=== PATIENT | female | born 1940 | race Caucasian/White ===

== ENCOUNTER → 2017-11-15 | Outpatient (CLI) | payer MEDICARE, BC ==
--- NOTE | 2017-11-15 15:10 | MM ---
Reason for exam: additional evaluation requested from prior study. Last mammogram was performed 1 year and 5 months ago. History: Patient is postmenopausal, has history of breast cancer at age 76, and history of other cancer. Family history of breast cancer in paternal cousin at age 50 and breast cancer in paternal grandmother at age 70. Malignant US breast needle core LT of the left breast, June 29, 2016. Mastectomy of the left breast, June 2016. Benign excisional biopsy of the left breast, April 21, 1999. Took estrogen for 15 years beginning at age 41. Physical Findings: Nurse did not find any significant physical abnormalities on exam. MG 3D Diag Mammo W/Cad RT CC and MLO view(s) were taken of the right breast. Prior study comparison: June 29, 2016, left breast MG diagnostic mammo LT wo CAD. June 08, 2016, left breast MG 3d work up w/cad LT. The breast tissue is heterogeneously dense. This may lower the sensitivity of mammography. Finding: There are typically benign vascular calcifications in the right breast. No suspicious abnormality. These results were verbally communicated with the patient and result sheet given to the patient on 11/15/17. ASSESSMENT: Benign, BI-RAD 2 RECOMMENDATION: Follow-up diagnostic mammogram of the right breast in 1 year.
== END ==
LOC: RADMAMWWP 13:52
PROVIDERS: ATTEND Nurse Practitioner Family
DX: R92.8 Other abnormal and inconclusive findings on diagnostic imaging of breast (principal); Z85.3 Personal history of malignant neoplasm of breast
CPT/HCPCS: 77065; G0279

== ENCOUNTER → 2019-01-13 | Outpatient (CLI) | payer MEDICARE, BC ==
--- NOTE | 2019-01-14 07:37 | MM ---
Reason for exam: additional evaluation requested from prior study. Last mammogram was performed 1 year and 2 months ago. History: Patient is postmenopausal, has history of breast cancer at age 76, and history of other cancer. Family history of breast cancer in paternal cousin at age 50 and breast cancer in paternal grandmother at age 70. Malignant US breast needle core LT of the left breast, June 29, 2016. Mastectomy of the left breast, June 2016. Benign excisional biopsy of the left breast, April 21, 1999. Took estrogen for 15 years beginning at age 41. Physical Findings: Nurse did not find any significant physical abnormalities on exam. MG 3D Diag Mammo W/Cad RT CC and MLO view(s) were taken of the right breast. Prior study comparison: November 15, 2017, right breast MG 3d diag mammo w/cad RT. June 29, 2016, left breast MG diagnostic mammo LT wo CAD. The breast tissue is heterogeneously dense. This may lower the sensitivity of mammography. Stable vascular calcifications. There is no discrete abnormality. No significant new findings when compared with previous films. These results were verbally communicated with the patient and result sheet given to the patient on 01/13/19. ASSESSMENT: Benign, BI-RAD 2 RECOMMENDATION: Routine screening mammogram of the right breast in 1 year.
--- NOTE | 2019-01-14 09:50 | BD ---
EXAMINATION TYPE: Axial Bone Density DATE OF EXAM: 01/13/2019 COMPARISON: NONE CLINICAL HISTORY: 78 YR OLD FEMALE.....ICD-10 CODE: Z78.0 POST MENOPAUSAL W/O HRT Height: 67.5 Weight: 131 FRAX RISK QUESTIONS: Family History (Parent hip fracture): YES Glucocorticoids (More than 3mos): YES (Ex: prednisone, prednisolone, methylprednisolone, dexamethasone, and hydrocortisone). RISK FACTORS HISTORY OF: Family History of Osteoporosis: YES HER MOTHER WITH HIP FX, SISTERS X3 ALL WITH HIP FXS Active: GETS AROUND Postmenopausal woman: YES, TOTAL HYST AT 45 YRS OLD, HORMONES FOR SHORT WHILE ONLY, NONE NOW Lost more than 2 inches in height since high school: YES Frequent falls: UNSTEADY, SHAKY Poor Health: FRAIL MEDICATIONS: Prednisone or other steroids: INHALER WITH STEROIDS, COPD, STEROIDS How Long: FOR MANY YRS Osteoporosis Medications: PROLIA 2X/YR ...FOR 2 YRS NOW Additional Medications: DIABETIC MEDS, BP MEDS, HEART MEDS, CALCIUM AND VIT D, 2 DIABETIC INJECTIONS DAILY ALSO Additional History: DIABETIC, OSTEOARTHRITIS, EXAM MEASUREMENTS: Bone mineral densitometry was performed using the [employer] System. Bone mineral density as measured about the Lumbar spine is: ----- L1-L4(G/cm2): 1.036 T Score Values are as follows: ----- L1: -1.4 ----- L2: -1.0 ----- L3: -1.6 ----- L4: -1.5 ----- L1-L4: -1.3 Bone mineral density FIRST DEXA AT [facility] Bone mineral density about the R hip (g/cm2): 0.758 Bone mineral density about the L hip (g/cm2): 0.809 T Score values are as follows: -----R Neck: -1.5 -----L Neck: -1.5 -----R Total: -2.0 -----L Total: -1.6 Bone mineral density FIRST DEXA AT [facility] FRAX%s: THERE IS A 31.2% CHANCE FOR A MAJOR OSTEOPOROTIC FX AND A 20.4% FOR HIP......PROBABILITY F OR FX IN 10 YRS TIME IMPRESSION: Osteopenia (T Score between -2.5 and -1). There is slightly increased risk of fracture and the patient may be considered for treatment. Re-Screen 2-5 years. NOTE: T-SCORE=SD OF THE YOUNG ADULT MEAN.
== END | disposition home or self-care (01) ==
LOC: RADMAMWWP 15:31
PROVIDERS: ATTEND Family Medicine
DX: Z13.820 Encounter for screening for osteoporosis (principal); M85.80 Other specified disorders of bone density and structure, unspecified site; Z85.3 Personal history of malignant neoplasm of breast; Z78.0 Asymptomatic menopausal state
CPT/HCPCS: 77080; 77065; G0279; 77061

== ENCOUNTER 2019-09-23 16:55 | Emergency (ER) | payer MEDICARE, BC ==
[2019-09-23 17:08] VITALS: RESP 18; TEMP 97.6
--- NOTE | 2019-09-23 18:45 | ED ---
General Adult HPI - General Chief complaint: Recheck/Abnormal Lab/Rx Stated complaint: High BP Time Seen by Provider: 09/23/19 17:08 Source: patient Mode of arrival: wheelchair Limitations: no limitations - History of Present Illness Initial comments: The patient is an 79 old female past medical history of diabetes mellitus and hypertension who presents emergency room with reported high blood pressures. She states that she has had hypertension for years. 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 She takes ramipril 40 mg at night and amlodipine 5 mg during the day. The amlodipine was recently added to her regimen approximately 3 weeks ago. States that she does not believe that it is helping her blood pressures even though she is taking them as directed. She does have hydrochlorothiazide at home as well however was only told to take this when she has lower extremity swelling which she has not had recently. She will frequently take them at home and they continuously to be 180 systolic or above. Today her took her blood pressure and it was noted to be 200. He was concerned about stroke and therefore came into the emergency department for evaluation. She states that she has asymptomatic. No headaches or visual changes. Denies any unilateral numbness or weakness. No confusion from the patient. Denies any neck pain. No chest pain or shortness of breath. Denies abdominal pain. No nausea or vomiting. There are no other alleviating, precipitating or modifying factors - Related Data Home Medications Medication Instructions Recorded Confirmed Exenatide [Byetta] 5 mcg SQ BID 06/11/14 04/12/16 Hydrochlorothiazide [Hydrodiuril] 25 mg PO QAM 06/11/14 04/12/16 Mometasone/Formoterol [Dulera 100 2 puff INHALATION RT-BID 06/11/14 04/12/16 Mcg/5 Mcg Inhaler] Pioglitazone HCl [Actos] 15 mg PO PC-LUNCH 06/11/14 04/12/16 Pravastatin Sodium [Pravachol] 40 mg PO HS 06/11/14 04/12/16 Ramipril 10 mg PO HS 06/11/14 04/12/16 lamoTRIgine [LaMICtal] 50 mg PO BID 06/11/14 04/12/16 Albuterol Nebulized [Ventolin 2.5 mg INHALATION RT-Q4H PRN 04/12/16 04/12/16 Nebulized] Aspirin EC [Ecotrin] 81 mg PO HS 04/12/16 04/12/16 Denosumab [Prolia] 60 mg SQ Q180D 04/12/16 04/12/16 Ergocalciferol [Vitamin D2] 50,000 unit PO MO 04/12/16 04/12/16 Glucosamine Sulfate 500 mg PO HS 04/12/16 04/12/16 Ubidecarenone [Co Q-10] 100 mg PO HS 04/12/16 04/12/16 Previous Rx's Medication Instructions Recorded amLODIPine [Norvasc] 10 mg PO DAILY #20 tablet 09/23/19 Allergies Allergy/AdvReac Type Severity Reaction Status Date / Time No Known Allergies Allergy Verified 09/23/19 17:07 Review of Systems ROS Statement: Those systems with pertinent positive or pertinent negative responses have been documented in the HPI. ROS Other: All systems not noted in ROS Statement are negative. Past Medical History Past Medical History: Asthma, COPD, Diabetes Mellitus, Hyperlipidemia, Hypertension History of Any Multi-Drug Resistant Organisms: None Reported Past Surgical History: Heart Catheterization, Hysterectomy Additional Past Surgical History / Comment(s): cath in 2007 Past Anesthesia/Blood Transfusion Reactions: No Reported Reaction, Motion Sickness Past Psychological History: No Psychological Hx Reported Smoking Status: Former smoker Past Alcohol Use History: Occasional Past Drug Use History: None Reported General Exam Limitations: no limitations General appearance: alert, in no apparent distress Head exam: Present: atraumatic, normocephalic, normal inspection Eye exam: Present: normal appearance, PERRL, EOMI. Absent: scleral icterus, conjunctival injection, periorbital swelling ENT exam: Present: normal exam, mucous membranes moist Neck exam: Present: normal inspection. Absent: tenderness, meningismus, lymphadenopathy Respiratory exam: Present: normal lung sounds bilaterally. Absent: respiratory distress, wheezes, rales, rhonchi, stridor Cardiovascular Exam: Present: regular rate, normal rhythm, normal heart sounds. Absent: systolic murmur, diastolic murmur, rubs, gallop, clicks GI/Abdominal exam: Present: soft, normal bowel sounds. Absent: distended, tenderness, guarding, rebound, rigid Extremities exam: Present: normal inspection, full ROM, normal capillary refill. Absent: tenderness, pedal edema, joint swelling, calf tenderness Back exam: Present: normal inspection Neurological exam: Present: alert, oriented X3, CN II-XII intact Psychiatric exam: Present: normal affect, normal mood Skin exam: Present: warm, dry, intact, normal color. Absent: rash Course Vital Signs 09/23/19 09/23/19 17:03 19:06 Temperature 97.6 F Pulse Rate 60 49 L Respiratory 18 18 Rate Blood Pressure 195/73 186/75 O2 Sat by Pulse 95 100 Oximetry Medical Decision Making - Medical Decision Making Upon arrival the patient is placed in room 11. A thorough history and physical exam is performed. I did recommend laboratory studies to look for end organ damage. The patient did have multiple blood pressures obtained which were all over 180 systolic. I did provide her with a dose of clonidine. Laboratory studies returned and are normal. Discussed diagnosis, differential and treatment options. The patient will go home tonight and repeat her blood pressures prior to taking her nighttime blood pressure medications which she states she takes around 10:00. She is instructed not to take the medications of her blood pressure is less than 140 systolic. She is to call Dr. Alejo's office and follow-up regarding long-term blood pressure control. I will increase her dose of amlodipine to 10 mg daily. She is to take her blood pressure 3 times a day and keep a log. The patient understood this. She has any new or worsening symptoms she should return to the emergency room. The patient was discharged home in stable condition - Lab Data Result diagrams: 09/23/19 18:30 09/23/19 18:30 Lab Results 09/23/19 09/23/19 Range/Units 18:30 18:30 WBC 6.1 (3.8-10.6) k/uL RBC 4.23 (3.80-5.40) m/uL Hgb 12.8 (11.4-16.0) gm/dL Hct 37.7 (34.0-46.0) % MCV 89.1 (80.0-100.0) fL MCH 30.3 (25.0-35.0) pg MCHC 33.9 (31.0-37.0) g/dL RDW 12.9 (11.5-15.5) % Plt Count 236 (150-450) k/uL Neutrophils % 71 % Lymphocytes % 20 % Monocytes % 4 % Eosinophils % 3 % Basophils % 1 % Neutrophils # 4.3 (1.3-7.7) k/uL Lymphocytes # 1.2 (1.0-4.8) k/uL Monocytes # 0.2 (0-1.0) k/uL Eosinophils # 0.2 (0-0.7) k/uL Basophils # 0.0 (0-0.2) k/uL Sodium 139 (137-145) mmol/L Potassium 4.1 (3.5-5.1) mmol/L Chloride 107 (98-107) mmol/L Carbon Dioxide 25 (22-30) mmol/L Anion Gap 7 mmol/L BUN 14 (7-17) mg/dL Creatinine 0.52 (0.52-1.04) mg/dL Est GFR (CKD-EPI)AfAm >90 (>60 ml/min/1.73 sqM) Est GFR (CKD-EPI)NonAf >90 (>60 ml/min/1.73 sqM) Glucose 122 H (74-99) mg/dL Calcium 10.0 (8.4-10.2) mg/dL Total Bilirubin 1.1 (0.2-1.3) mg/dL AST 24 (14-36) U/L ALT 15 (4-34) U/L Alkaline Phosphatase 58 (38-126) U/L Total Protein 6.6 (6.3-8.2) g/dL Albumin 4.4 (3.5-5.0) g/dL Disposition Clinical Impression: Hypertension Disposition: HOME SELF-CARE Condition: Stable Additional Instructions: Please follow-up with Dr. Alejo regarding the change in your blood pressure medications to ensure that it is effective. Return to the emergency room for any new worsening symptoms. Take your blood pressure reading tonight before you take your nighttime medication Prescriptions: amLODIPine [Norvasc] 10 mg PO DAILY #20 tablet Is patient prescribed a controlled substance at d/c from ED?: No Referrals: Ivelisse Carr DO [Primary Care Provider] - 1-2 days Time of Disposition: 19:34
[2019-09-23 18:53] LABS: Basophils % (A) 1 %; Eosinophils # (A) 0.2 k/uL (0-0.7); Eosinophils % (A) 3 %; HCT 37.7 % (34.0-46.0); HGB 12.8 gm/dL (11.4-16.0); Lymphocytes # (A) 1.2 k/uL (1.0-4.8); Lymphocytes % (A) 20 %; MCH 30.3 pg (25.0-35.0); MCHC 33.9 g/dL (31.0-37.0); MCV 89.1 fL (80.0-100.0); Monocytes # (A) 0.2 k/uL (0-1.0); Monocytes % (A) 4 %; Neutrophils # (A) 4.3 k/uL (1.3-7.7); Neutrophils % (A) 71 %; Platelet Count 236 k/uL (150-450); RBC 4.23 m/uL (3.80-5.40); RDW 12.9 % (11.5-15.5); WBC 6.1 k/uL (3.8-10.6)
[2019-09-23 18:59] LABS: ALT 15 U/L (4-34); AST 24 U/L (14-36); African American GFR (CKD) >90 (>60 ml/min/1.73 sqM); Albumin 4.4 g/dL (3.5-5.0); Alkaline Phosphatase 58 U/L (38-126); Anion Gap 7 mmol/L; Blood Urea Nitrogen 14 mg/dL (7-17); Carbon Dioxide 25 mmol/L (22-30); Chloride 107 mmol/L (98-107); Glucose 122 mg/dL (74-99); Non-African American GFR(CKD) >90 (>60 ml/min/1.73 sqM); Potassium 4.1 mmol/L (3.5-5.1); Sodium 139 mmol/L (137-145); Total Bilirubin 1.1 mg/dL (0.2-1.3); Total Protein 6.6 g/dL (6.3-8.2)
[2019-09-23 19:07] VITALS: BP 186/75; PULSE 49
[2019-09-23] MEDS ORDERED: cloNIDine HCL 0.1 MG TAB PO STA (19:32)
== END 2019-09-23 19:56 | disposition home or self-care (01) ==
LOC: EC 16:55
DX: I10 Essential (primary) hypertension (principal); J44.9 Chronic obstructive pulmonary disease, unspecified; E11.9 Type 2 diabetes mellitus without complications; E78.5 Hyperlipidemia, unspecified; Z79.51 Long term (current) use of inhaled steroids; Z79.84 Long term (current) use of oral hypoglycemic drugs; Z79.82 Long term (current) use of aspirin; Z79.899 Other long term (current) drug therapy; Z95.818 Presence of other cardiac implants and grafts; Z87.891 Personal history of nicotine dependence
CPT/HCPCS: 36415; 80053; 85025; 99283

== ENCOUNTER 2020-06-22 13:34 | Inpatient (IN) | payer MEDICARE, BC ==
[2020-06-22] MEDS ORDERED: HYDROmorphone 1 MG/ML 1 ML SYRINGE IVP STA ×2 (13:44→14:40)
[2020-06-22] MEDS ORDERED: DIPH,PERTUS(ACELL)TETVAC-LF 0.5 ML VIAL IM ONE (13:57)
--- NOTE | 2020-06-22 13:58 | ED ---
General Adult HPI - General Chief complaint: Fall Stated complaint: FALL Time Seen by Provider: 06/22/20 13:37 Source: patient, family, EMS, RN notes reviewed, old records reviewed Mode of arrival: EMS Limitations: physical limitation - History of Present Illness Initial comments: 80-year-old female presents status post fall. This was ground-level fall. Patient was transported by EMS with excruciating right hip pain. She did have injury to the right upper arm and some skin tears throughout the right upper arm. She believes she was unconscious for approximately one minute. She states this was a mechanical fall, no preceding chest pain or palpitations. States that she just tripped. Main complaint is right hip pain. No headache. No focal numbness or weakness. - Related Data Home Medications Medication Instructions Recorded Confirmed Exenatide [Byetta] 5 mcg SQ BID 06/11/14 04/12/16 Mometasone/Formoterol [Dulera 100 2 puff INHALATION RT-BID 06/11/14 04/12/16 Mcg/5 Mcg Inhaler] Pioglitazone HCl [Actos] 15 mg PO PC-LUNCH 06/11/14 04/12/16 Pravastatin Sodium [Pravachol] 40 mg PO HS 06/11/14 04/12/16 Ramipril 10 mg PO HS 06/11/14 04/12/16 hydroCHLOROthiazide [Hydrodiuril] 25 mg PO QAM 06/11/14 04/12/16 lamoTRIgine [LaMICtal] 50 mg PO BID 06/11/14 04/12/16 Albuterol Nebulized [Ventolin 2.5 mg INHALATION RT-Q4H PRN 04/12/16 04/12/16 Nebulized] Aspirin EC [Ecotrin] 81 mg PO HS 04/12/16 04/12/16 Denosumab [Prolia] 60 mg SQ Q180D 04/12/16 04/12/16 Ergocalciferol [Vitamin D2] 50,000 unit PO MO 04/12/16 04/12/16 Glucosamine Sulfate 500 mg PO HS 04/12/16 04/12/16 Ubidecarenone [Co Q-10] 100 mg PO HS 04/12/16 04/12/16 Previous Rx's Medication Instructions Recorded amLODIPine [Norvasc] 10 mg PO DAILY #20 tablet 09/23/19 Allergies Allergy/AdvReac Type Severity Reaction Status Date / Time No Known Allergies Allergy Verified 06/22/20 13:38 Review of Systems ROS Statement: Those systems with pertinent positive or pertinent negative responses have been documented in the HPI. ROS Other: All systems not noted in ROS Statement are negative. Past Medical History Past Medical History: Asthma, COPD, Diabetes Mellitus, Hyperlipidemia, Hypertension History of Any Multi-Drug Resistant Organisms: None Reported Past Surgical History: Heart Catheterization, Hysterectomy Additional Past Surgical History / Comment(s): cath in 2007 Past Anesthesia/Blood Transfusion Reactions: No Reported Reaction, Motion Sickness Past Psychological History: No Psychological Hx Reported Smoking Status: Former smoker Past Alcohol Use History: Daily Past Drug Use History: None Reported General Exam Limitations: physical limitation General appearance: alert, in no apparent distress Head exam: Present: atraumatic, normocephalic Eye exam: Present: normal appearance, PERRL ENT exam: Present: normal exam Neck exam: Present: normal inspection. Absent: tenderness, meningismus Respiratory exam: Present: normal lung sounds bilaterally. Absent: respiratory distress, wheezes Cardiovascular Exam: Present: regular rate, normal rhythm GI/Abdominal exam: Present: soft. Absent: distended, tenderness Extremities exam: Present: tenderness, normal capillary refill. Absent: full ROM (Hip is externally rotated, there is severe pain with any movement of the right lower extremity. Distal pulses are intact, patient has sensation in the foot.), pedal edema Neurological exam: Present: alert, oriented X3. Absent: motor sensory deficit Skin exam: Present: abrasion (Several abrasions and skin tear to the right upper extremity.) Course Vital Signs 06/22/20 13:38 Temperature 98.0 F Pulse Rate 76 Respiratory 16 Rate Blood Pressure 174/67 O2 Sat by Pulse 100 Oximetry - Reevaluation(s) Reevaluation #1: 06/22/20 14:17 Tetanus updated. EKG Findings - EKG Comments: EKG Findings:: EKG: Normal sinus rhythm, poor QT, rate of 79, WA interval 180, QRS duration 94, QTC 41, no ST segment elevation. T-wave inversion in V6 Medical Decision Making - Medical Decision Making 80-year-old female status post ground-level fall with severe right hip pain. Patient is externally rotated, severe pain with any range of motion or movement. Distal pulses are intact. She has skin tears throughout the right upper extremity, workup reveals a right displaced clavicle fracture, she is placed in an upper extremity sling. She has a right intertrochanteric fracture which is displaced and comminuted. Head CT is performed, negative for intracranial hemorrhage or mass effect, cervical spine negative for fracture or dislocation. Patient has a normal CBC, normal CMP. I did discuss case with Jennifer Leal covering for orthopedics, she will admit for Dr[facility] Bain. [facility]. - Lab Data Result diagrams: 06/22/20 13:48 06/22/20 13:48 Lab Results 06/22/20 06/22/20 06/22/20 Range/Units 13:48 13:48 13:48 WBC 12.0 H (3.8-10.6) k/uL RBC 4.14 (3.80-5.40) m/uL Hgb 11.7 (11.4-16.0) gm/dL Hct 37.0 (34.0-46.0) % MCV 89.5 (80.0-100.0) fL MCH 28.4 (25.0-35.0) pg MCHC 31.7 (31.0-37.0) g/dL RDW 13.2 (11.5-15.5) % Plt Count 271 (150-450) k/uL Neutrophils % 78 % Lymphocytes % 16 % Monocytes % 3 % Eosinophils % 2 % Basophils % 0 % Neutrophils # 9.4 H (1.3-7.7) k/uL Lymphocytes # 1.9 (1.0-4.8) k/uL Monocytes # 0.4 (0-1.0) k/uL Eosinophils # 0.2 (0-0.7) k/uL Basophils # 0.0 (0-0.2) k/uL PT 9.7 (9.0-12.0) sec INR 0.9 (<1.2) APTT 21.7 L (22.0-30.0) sec Sodium 135 L (137-145) mmol/L Potassium 4.4 (3.5-5.1) mmol/L Chloride 104 (98-107) mmol/L Carbon Dioxide 23 (22-30) mmol/L Anion Gap 8 mmol/L BUN 22 H (7-17) mg/dL Creatinine 0.55 (0.52-1.04) mg/dL Est GFR (CKD-EPI)AfAm >90 (>60 ml/min/1.73 sqM) Est GFR (CKD-EPI)NonAf 88 (>60 ml/min/1.73 sqM) Glucose 162 H (74-99) mg/dL Calcium 10.2 (8.4-10.2) mg/dL Magnesium 1.9 (1.6-2.3) mg/dL Disposition Clinical Impression: Fall, Right clavicle fracture, Hip fracture Disposition: ADMITTED IP TO THIS [facility] Condition: Stable Is patient prescribed a controlled substance at d/c from ED?: No Referrals: Carmela Morris DO [Primary Care Provider] - 1-2 days Decision to Admit Reason: Admit from EC Decision Date: 06/22/20 Decision Time: 15:09
[2020-06-22 14:06] LABS: Basophils % (A) 0 %; Eosinophils # (A) 0.2 k/uL (0-0.7); Eosinophils % (A) 2 %; HGB 11.7 gm/dL (11.4-16.0); Lymphocytes # (A) 1.9 k/uL (1.0-4.8); Lymphocytes % (A) 16 %; MCH 28.4 pg (25.0-35.0); MCHC 31.7 g/dL (31.0-37.0); MCV 89.5 fL (80.0-100.0); Mean Platelet Volume 6.8; Monocytes # (A) 0.4 k/uL (0-1.0); Monocytes % (A) 3 %; Neutrophils # (A) 9.4 k/uL (1.3-7.7); Neutrophils % (A) 78 %; Platelet Count 271 k/uL (150-450); RBC 4.14 m/uL (3.80-5.40); RDW 13.2 % (11.5-15.5)
[2020-06-22 14:23] LABS: INR 0.9 (<1.2); Prothrombin Time 9.7 sec (9.0-12.0)
[2020-06-22 14:24] LABS: African American GFR (CKD) >90 (>60 ml/min/1.73 sqM); Anion Gap 8 mmol/L; Blood Urea Nitrogen 22 mg/dL (7-17); Calcium 10.2 mg/dL (8.4-10.2); Carbon Dioxide 23 mmol/L (22-30); Chloride 104 mmol/L (98-107); Glucose 162 mg/dL (74-99); Magnesium 1.9 mg/dL (1.6-2.3); Non-African American GFR(CKD) 88 (>60 ml/min/1.73 sqM); Potassium 4.4 mmol/L (3.5-5.1); Sodium 135 mmol/L (137-145)
--- NOTE | 2020-06-22 14:32 | XR ---
EXAMINATION TYPE: XR chest 1V portable DATE OF EXAM: 06/22/2020 COMPARISON: NONE HISTORY: Pain TECHNIQUE: Single frontal view of the chest is obtained. FINDINGS: There is no focal air space opacity, pleural effusion, or pneumothorax seen. The cardiac silhouette size is within normal limits. The osseous structures are intact. There is a displaced fr acture of the distal right clavicle. Calcified lymph nodes in the hilum suspected. IMPRESSION: 1. Fracture distal right clavicle with displacement.
--- NOTE | 2020-06-22 14:33 | XR ---
EXAMINATION TYPE: XR humerus RT DATE OF EXAM: 06/22/2020 COMPARISON: NONE HISTORY: Pain TECHNIQUE: 2 views submitted. FINDINGS: There is a displaced fracture of the distal right clavicle. Diffuse osteopenia. Remaining osseous str uctures intact. IMPRESSION: 1. Displaced distal right clavicular fracture
--- NOTE | 2020-06-22 14:34 | XR ---
EXAMINATION TYPE: XR Hip RT and AP Pelvis DATE OF EXAM: 06/22/2020 COMPARISON: NONE HISTORY: Pain TECHNIQUE: A single AP view of the pelvis is obtained. Two views of the right hip are obtained. FINDINGS: There is diffuse osteopenia and a displaced comminuted fracture of the right femoral neck. Calcifications in the pelvis noted. IMPRESSION: 1. Displaced comminuted fracture right femoral neck
[2020-06-22 14:45] LABS: Partial Thromboplastin Time 21.7 sec (22.0-30.0)
[2020-06-22] MEDS ORDERED: HYDROmorphone 0.5 MG/0.5 ML SYRINGE IVP PRN (15:05)
[2020-06-22] MEDS ORDERED: NALOXONE 0.4 MG/ML 1 ML VIAL IV PRN (15:05)
--- NOTE | 2020-06-22 15:08 | CT ---
EXAMINATION TYPE: CT brain shaunine wo con DATE OF EXAM: 06/22/2020 COMPARISON: NONE HISTORY: Fall injury with headache and neck pain. CT DLP: 1232.7 mGycm. Automated Exposure Control for Dose Reduction was Utilized. TECHNIQUE: CT scan of the head and cervical spine are performed without contrast. FINDINGS: There is no acute intracranial hemorrhage or midline shift identified. Mild to moderate d iffuse ventricular and sulcal prominence. Sanchez-white matter differentiation fairly well maintained. The calvarium is intact. Evidence of prior paranasal sinus surgery with mild residual mucosal thicken ing. The globes are intact bilaterally. Cervical spine is visualized in its entirety from C1 through upper thoracic levels and demonstrates s atisfactory alignment without evidence of acute fracture or dislocation. Prevertebral soft tissue ap pears within normal limits. The C1-C2 articulation is within normal limits on the coronal images. O sseous structures somewhat demineralized. Vertebral body heights and disc space heights maintained. S ariana canal grossly preserved. Axial images show mild/moderate calcified plaque bilateral carotid bul b level. There is subcentimeter right thyroid nodule axial image 70. There is mild/moderate biapical pleural/parenchymal scarring. There is calcified 6 mm left upper lobe nodule or granuloma anteriorly on axial image 84. IMPRESSION: 1. There is no acute fracture or dislocation evident in the cervical spine. 2. No acute intracranial hemorrhage or midline shift is seen.
[2020-06-22] MEDS: SODIUM CHLORIDE 0.9% 1,000 ML IV SCH (16:14)
[2020-06-22 17:24] LABS: Glucose,Whole Blood 166 mg/dL (75-99)
[2020-06-22] MEDS: INSULIN ASPART (NovoLOG) 100 UNIT/ML VIAL SQ SCH ×2 (17:26→20:40)
[2020-06-22] MEDS: HYDROmorphone 1 MG/ML 1 ML SYRINGE IVP PRN ×2 (17:27→20:40)
[2020-06-22] MEDS ORDERED: ALBUTEROL HFA INHALER INHALATION PRN (17:50)
[2020-06-22] MEDS ORDERED: ALBUTEROL NEBULIZED 2.5 MG/3 ML INHALATION PRN (17:50)
[2020-06-22] MEDS: ENOXAPARIN 40 MG/0.4 ML SYRINGE SQ SCH (19:02)
[2020-06-22 20:36] LABS: Glucose,Whole Blood 164 mg/dL (75-99)
[2020-06-22] MEDS: PRAVASTATIN SODIUM 40 MG TAB PO SCH (20:40)
[2020-06-22] MEDS: CHOLECALCIFEROL 1,000 UNIT TAB PO SCH (20:40)
[2020-06-22] MEDS: SYMBICORT 80-4.5 MCG INHALER INHALATION SCH (20:57)
[2020-06-22] MEDS: lamoTRIgine 25 MG TAB PO SCH (21:13)
[2020-06-22] MEDS ORDERED: IPRATROPIUM-ALBUTEROL 3 ML NEB INHALATION PRN (22:44)
[2020-06-22] MEDS: lisinopriL 20 MG TAB PO SCH (22:56)
[2020-06-23] MEDS: HYDROmorphone 1 MG/ML 1 ML SYRINGE IVP PRN ×5 (02:12→21:29)
[2020-06-23] MEDS: SODIUM CHLORIDE 0.9% 1,000 ML IV SCH ×2 (03:55→19:05)
[2020-06-23 06:56] LABS: Basophils % (A) 0 %; Eosinophils # (A) 0.1 k/uL (0-0.7); Eosinophils % (A) 1 %; HCT 31.5 % (34.0-46.0); HGB 10.1 gm/dL (11.4-16.0); Lymphocytes # (A) 1.4 k/uL (1.0-4.8); Lymphocytes % (A) 18 %; MCH 28.7 pg (25.0-35.0); MCV 89.9 fL (80.0-100.0); Mean Platelet Volume 6.7; Monocytes # (A) 0.5 k/uL (0-1.0); Monocytes % (A) 6 %; Neutrophils # (A) 6.1 k/uL (1.3-7.7); Neutrophils % (A) 74 %; Platelet Count 239 k/uL (150-450); RDW 13.5 % (11.5-15.5); WBC 8.2 k/uL (3.8-10.6)
[2020-06-23 07:00] LABS: Glucose,Whole Blood 160 mg/dL (75-99)
--- NOTE | 2020-06-23 07:38 | CONS ---
CONSULTATION DATE OF SERVICE: 06/22/2020 REASON FOR CONSULTATION: Advice regarding hypertension, asthma, COPD, and other medical issues requested by Dr. Bain. HISTORY OF PRESENT ILLNESS: This 80-year-old woman with a past medical history of asthma, COPD, diabetes, hypertension, hyperlipidemia being followed by Dr. Morris in the outpatient setting is fairly active. Patient even exercises, but the patient has peripheral neuropathy in the foot because of diabetes mellitus and today the patient apparently had a fall at home at ground level and there was no history of any syncope. Patient was transported by the EMS and was complaining of right hip pain. Evaluation showed right hip fracture. The patient also had right clavicle fracture also. The patient is being admitted for further evaluation and treatment. Pain management done. Patient has essential tremors. There is no history of any fever or rigors. No history of headache, loss of consciousness, or seizures. The patient used to weigh 200 pounds several years ago according to her. PAST MEDICAL HISTORY: History asthma, COPD, diabetes mellitus type 2, hypertension, hyperlipidemia, history of pneumonia, rheumatoid arthritis, essential tremors. MEDICATIONS: Home medications are reviewed and include: Glucophage, Lamictal, HydroDIURIL, Norvasc, Coenzyme Q, Ramipril, Pravachol, Dulera, Byetta, Prolia, vitamin D3, Ecotrin, Ventolin. ALLERGIES: None. FAMILY HISTORY: History of lung disease. SOCIAL HISTORY: Previous history of smoking. Occasional alcohol intake. REVIEW OF SYSTEMS: ENT: Diminished hearing and diminished vision. CARDIOVASCULAR SYSTEM: No angina. RESPIRATORY SYSTEM: As mentioned earlier. GI: No nausea. : No dysuria. NERVOUS SYSTEM: No numbness or weakness. ALLERGY/IMMUNOLOGY: Asthma. MUSCULOSKELETAL: As mentioned earlier. HEMATOLOGY/ONCOLOGY: No history of anemia. ENDOCRINE: neg CONSTITUTIONAL: As mentioned earlier. DERMATOLOGY: Negative. RHEUMATOLOGY: Negative. PSYCHIATRY: As mentioned earlier. PHYSICAL EXAMINATION: The patient is alert and oriented x3. Pulse is 81, blood pressure 169/98, respiration 18, temperature 97.4, pulse ox 100% on room air. HEENT: Conjunctivae normal. Oral mucosa moist. NECK: No jugular venous distention. No carotid bruit. No lymph node enlargement. CARDIOVASCULAR: S1, S2 muffled. RESPIRATORY: Breath sounds diminished at the bases. A few scattered rhonchi, no crackles. ABDOMEN: Soft. Scaphoid. Nontender. No mass. LEGS: Movements of the right leg is painful, externally rotated because of the fracture. Some erythema noted in the right foot. NERVOUS SYSTEM: Higher function as mentioned earlier. Moves all 4 limbs except the right limb. Otherwise, no focal deficit. LYMPHATICS: No lymphadenopathy of the neck, axillae or groin. SKIN: No ulcer, rash or bleeding. JOINTS: No active deforming arthropathy. LABS: WBC 12, hemoglobin 11.7. Sodium is 135. Accu-Cheks noted. ASSESSMENT: 1. Fall and right hip fracture. 2. Right clavicular fracture. 3. Hyponatremia. 4. Increased WBC, possibly reactive. 5. Asthma, chronic obstructive pulmonary disease. 6. Diabetes mellitus type 2. 7. Hypertension. 8. Hyperlipidemia. 9. History of pneumonia. 10.History of rheumatoid arthritis. 11.History of bilateral peripheral neuropathy. 12.History essential tremors. 13.History of skin cancer. 14.History of cardiac catheterization. 15.Remote history of nicotine dependence. 16.FULL CODE. RECOMMENDATIONS AND DISCUSSION: This 80-year-old woman who presented with multiple complex medical issues, we will monitor the patient closely. Continue the current medications. Continue symptomatic treatment. Resume the home medications. The patient is clinically medically stable and cleared for surgery with some extra risks because of the multiple complex medical issues as mentioned. Otherwise, we will follow the patient closely and recommend DVT prophylaxis, pain management, incentive spirometry. Recommend close followup with Dr. Morris after discharge. Thank you Dr. Bain for letting us participate in the care of this patient. MMODL / IJN: [id number] / [facility]Stephen
[2020-06-23] MEDS: INSULIN ASPART (NovoLOG) 100 UNIT/ML VIAL SQ SCH ×4 (07:41→21:21)
[2020-06-23] MEDS: PANTOPRAZOLE 40 MG TABLET PO SCH (07:42)
[2020-06-23] MEDS: hydroCHLOROthiazide 25 MG TAB PO SCH (07:42)
[2020-06-23] MEDS: amLODIPine 10 MG TAB PO SCH (07:42)
[2020-06-23] MEDS: CHOLECALCIFEROL 1,000 UNIT TAB PO SCH ×2 (07:42→21:21)
[2020-06-23] MEDS: SYMBICORT 80-4.5 MCG INHALER INHALATION SCH ×2 (07:53→19:40)
[2020-06-23] MEDS: IPRATROPIUM-ALBUTEROL 3 ML NEB INHALATION SCH ×3 (08:06→19:43)
[2020-06-23] MEDS: HYDROcodone/APAP 5-325MG 1 EACH TAB PO PRN (08:58)
[2020-06-23] MEDS: metFORMIN 500 MG TAB PO SCH ×2 (08:58→21:22)
[2020-06-23] MEDS: lamoTRIgine 25 MG TAB PO SCH ×2 (09:00→21:22)
--- NOTE | 2020-06-23 09:00 | P.HPOR ---
History of Present Illness H&P Date: 06/23/20 Chief Complaint: Right hip pain This is an 80-year-old female who presented to the emergency department yesterday afternoon after a ground-level fall. Patient was transported by EMS with excruciating right hip pain. She did have injury to the right upper arm and some skin tears throughout the right upper arm. She believes she was unconscious for approximately one minute. She states this was a mechanical fall, no preceding chest pain or palpitations. States that she just tripped. Main complaint is right hip pain. No headache. No focal numbness or weakness. She has history of diabetic neuropathy to the lower extremities. On evaluation and x-ray in the emergency department she was found to have a right intertrochanteric hip fracture as well as a right distal clavicle fracture. She is admitted to our service for surgical intervention and care. Past Medical History Past Medical History: Asthma, COPD, Diabetes Mellitus, Hyperlipidemia, Hypertension, Pneumonia, Rheumatoid Arthritis (RA) Additional Past Medical History / Comment(s): skin CA, "heart misses a beat", heart murmur, History of Any Multi-Drug Resistant Organisms: None Reported Past Surgical History: Heart Catheterization, Hysterectomy Additional Past Surgical History / Comment(s): cath in 2007, (heart cath x2), ear surgery, skin CA remove, L Breast mastectomy, Left foot 1.5 toe's amp, right foot 1 toe amp Past Anesthesia/Blood Transfusion Reactions: No Reported Reaction, Motion Sickness Past Psychological History: No Psychological Hx Reported Smoking Status: Former smoker Past Alcohol Use History: Daily Past Drug Use History: None Reported - Past Family History Father Additional Family Medical History / Comment(s): states, "lung disease" Mother Additional Family Medical History / Comment(s): estreme "bone disease" Medications and Allergies Home Medications Medication Instructions Recorded Confirmed Type Exenatide [Byetta] 5 mcg SQ BID 06/11/14 06/22/20 History Mometasone/Formoterol [Dulera 100 2 puff INHALATION RT-BID 06/11/14 06/22/20 History Mcg/5 Mcg Inhaler] Pravastatin Sodium [Pravachol] 40 mg PO HS 06/11/14 06/22/20 History Ramipril 10 mg PO HS 06/11/14 06/22/20 History hydroCHLOROthiazide [Hydrodiuril] 25 mg PO DAILY 06/11/14 06/22/20 History Albuterol Nebulized [Ventolin 2.5 mg INHALATION RT-QID PRN 04/12/16 06/22/20 History Nebulized] Aspirin EC [Ecotrin] 81 mg PO HS 04/12/16 06/22/20 History Denosumab [Prolia] 60 mg SQ Q180D 04/12/16 06/22/20 History Ubidecarenone [Co Q-10] 200 mg PO HS 04/12/16 06/22/20 History amLODIPine [Norvasc] 10 mg PO DAILY #20 tablet 09/23/19 06/22/20 Rx Albuterol Inhaler [Ventolin Hfa 2 puff INHALATION RT-QID PRN 06/22/20 06/22/20 History Inhaler] Cholecalciferol [Vitamin D3 (25 1,000 unit PO BID 06/22/20 06/22/20 History Mcg = 1000 Iu)] lamoTRIgine [LaMICtal Xr] 50 mg PO BID 06/22/20 06/22/20 History metFORMIN HCL [Glucophage] 500 mg PO BID 06/22/20 06/22/20 History Allergies Allergy/AdvReac Type Severity Reaction Status Date / Time No Known Allergies Allergy Verified 06/22/20 15:51 Physical Examination This is a pleasant 80-year-old female in no acute distress. She is alert and oriented 3. Her son is present at bedside today. Exam of the head and neck reveal no obvious deformity. There is some tenderness about the right side of her posterior scalp. She has full cervical spine motion without difficulty or pain. She has no pain with palpation about cervical spine or paraspinal musculature. Exam of the upper extremities reveals a sling to the right arm. There is tenderness about the right clavicle. She has limited range of motion of the shoulder. Exam of the left upper extremities unremarkable. She has full shoulder, elbow, wrist and finger motion. Neurovascular status the upper extre mities intact. Exam of the lower extremities reveals shortening and external rotation to the right leg. She has full foot and ankle motion bilaterally. Pedal pulses are +2/4 bilaterally. She is missing the second and third toes on the left foot. Results X-rays of the right shoulder reveal a distal clavicle fracture with mild displacement. Pelvis and hip x-rays reveal a comminuted intertrochanteric fracture of the right hip. - Labs Labs: Abnormal Lab Results - Last 24 Hours (Table) 06/22/20 06/22/20 06/22/20 Range/Units 13:48 13:48 13:48 WBC 12.0 H (3.8-10.6) k/uL RBC (3.80-5.40) m/uL Hgb (11.4-16.0) gm/dL Hct (34.0-46.0) % Neutrophils # 9.4 H (1.3-7.7) k/uL APTT 21.7 L (22.0-30.0) sec Sodium 135 L (137-145) mmol/L BUN 22 H (7-17) mg/dL Glucose 162 H (74-99) mg/dL POC Glucose (mg/dL) (75-99) mg/dL 06/22/20 06/22/20 06/23/20 Range/Units 17:21 20:33 06:39 WBC (3.8-10.6) k/uL RBC 3.50 L (3.80-5.40) m/uL Hgb 10.1 L (11.4-16.0) gm/dL Hct 31.5 L (34.0-46.0) % Neutrophils # (1.3-7.7) k/uL APTT (22.0-30.0) sec Sodium (137-145) mmol/L BUN (7-17) mg/dL Glucose (74-99) mg/dL POC Glucose (mg/dL) 166 H 164 H (75-99) mg/dL 06/23/20 Range/Units 06:58 WBC (3.8-10.6) k/uL RBC (3.80-5.40) m/uL Hgb (11.4-16.0) gm/dL Hct (34.0-46.0) % Neutrophils # (1.3-7.7) k/uL APTT (22.0-30.0) sec Sodium (137-145) mmol/L BUN (7-17) mg/dL Glucose (74-99) mg/dL POC Glucose (mg/dL) 160 H (75-99) mg/dL H & H 09/30/20 10/01/20 Range/Units 13:48 06:39 Hgb 11.7 10.1 L (11.4-16.0) gm/dL Hct 37.0 31.5 L (34.0-46.0) % Coagulation 06/22/20 Range/Units 13:48 INR 0.9 (<1.2) Result Diagrams: 06/23/20 06:39 06/22/20 13:48 Assessment and Plan (1) Intertrochanteric fracture of right hip Current Visit: Yes Status: Acute Code(s): S72.141A - DISPLACED INTERTROCHANTERIC FRACTURE OF RIGHT FEMUR, INIT SNOMED Code(s): 491014737 (2) Fall Current Visit: Yes Status: Acute Code(s): W19.XXXA - UNSPECIFIED FALL, INITIAL ENCOUNTER SNOMED Code(s): 8282229 (3) Right clavicle fracture Current Visit: Yes Status: Acute Code(s): S42.001A - FRACTURE OF UNSP PART OF RIGHT CLAVICLE, INIT FOR CLOS FX SNOMED Code(s): 55194337 Plan: The clinical and x-ray findings are discussed with the patient and her son. It is recommended she undergo closed reduction with insertion of intertrochanteric nail of the right hip. The procedures been discussed in detail including the possible risks and outcomes of the surgery. After discussion and consideration the patient elects to proceed with surgery. Regarding the shoulder I recommend closed treatment to the distal clavicle fracture. She is currently in a sling. It is discussed that the patient may need inpatient rehab postoperatively.
[2020-06-23 10:06] LABS: African American GFR (CKD) 98.4 (60.0-200.0); Anion Gap 11.7 mmol/L (4.00-12.00); Carbon Dioxide 21.3 mmol/L (21.6-31.8); Non-African American GFR(CKD) 84.9 (60.0-200.0); Potassium 3.7 mmol/L (3.5-5.5)
[2020-06-23 11:20] LABS: Glucose,Whole Blood 143 mg/dL (75-99)
[2020-06-23 16:56] LABS: Glucose,Whole Blood 171 mg/dL (75-99)
[2020-06-23] MEDS: ENOXAPARIN 40 MG/0.4 ML SYRINGE SQ SCH (17:22)
--- NOTE | 2020-06-23 20:45 | PN ---
PROGRESS NOTE DATE OF SERVICE: 06/23/2020 This 80-year-old woman was admitted with a fall and right hip fracture is being closely monitored. Patient also had right clavicular fracture also. The patient Patient has essential tremors also. Orthopedics saw the patient. The patient also had a head and cervical spine CT scan yesterday. Orthopedic Surgery is following and planning surgery probably tomorrow. The CT scan showed no acute abnormality. A chest x-ray was reviewed. The patient also had multiple medical problems. Hemoglobin 10.9. Sugars are being monitored at this time. UA is not available. PAST MEDICAL HISTORY: Reviewed. REVIEW OF SYSTEMS: CARDIOVASCULAR: No angina or palpitations. RESPIRATION as mentioned earlier. GI: As mentioned earlier. : No dysuria or hematuria. NERVOUS SYSTEM: No numbness or weakness. CURRENT MEDICATIONS: Reviewed and include Hugo 5 mg, DuoNeb q.i.d. and p.r.n., Norvasc, Symbicort 80/4.5, Vitamin D3, Lovenox, HydroDIURIL, Lamictal, Zestril, Glucophage, Narcan, Protonix and Pravachol. PHYSICAL EXAM: Patient is alert, oriented times three. Pulse 66, blood pressure 135/80, respirations 16, temperature 98.4, pulse ox 100 percent on room air. HEENT: Conjunctivae normal. NECK: No JVD. CARDIOVASCULAR: S1, S2 muffled. RESPIRATORY: Breath sounds diminished in the bases. Scattered rhonchi and crackles. ABDOMEN: Soft, nontender. LEGS: No edema. No swelling. NERVOUS SYSTEM: No focal deficits. LABS: At this time shows WBC 8.2, hemoglobin 10.1. ASSESSMENT: 1. Fall and right hip fracture. 2. Right clavicular fracture. 3. Hyponatremia. 4. Increased WBC possibly reactive. 5. Asthma, chronic obstructive pulmonary disease. 6. Diabetes mellitus type 2. 7. Hypertension. 8. Hyperlipidemia. 9. History of pneumonia. 10.History of rheumatoid arthritis. 11.History of bilateral peripheral neuropathy. 12.History of essential tremors. 13.History of skin cancer. 14.History of cardiac catheterization. 15.Remote history of nicotine dependence. 16.FULL CODE. RECOMMENDATIONS AND DISCUSSION: I recommend to continue current medications, monitoring and symptomatic treatment. Otherwise, at this time, I recommend continue with current medications. Continue symptomatic treatment. The patient is currently stable medically. I would recommend continue with DVT prophylaxis and the patient is cleared for surgery. Further recommendations to follow. MMODL / IJN: [id number] / [facility]
[2020-06-23 20:56] LABS: Glucose,Whole Blood 141 mg/dL (75-99)
[2020-06-23] MEDS: lisinopriL 20 MG TAB PO SCH (21:22)
[2020-06-23] MEDS: PRAVASTATIN SODIUM 40 MG TAB PO SCH (21:22)
[2020-06-23 22:33] LABS: Appearance,Urine Clear (Clear); Bacteria,Urine Rare /hpf; Bilirubin,Urine Negative (Negative); Blood,Urine Moderate (Negative); Color,Urine Light Yellow; Glucose,Urine (UA) Negative (Negative); Ketones,Urine Negative (Negative); Leukocyte Esterase,Urine Moderate (Negative); Mucus,Urine Rare /hpf; Nitrite,Urine Positive (Negative); Protein,Urine Negative (Negative); RBC,Urine 43 /hpf (0-5); Specific Gravity,Urine 1.008 (1.001-1.035); Urobilinogen,Urine <2.0 mg/dL (<2.0); WBC,Urine 9 /hpf (0-5)
[2020-06-24] MEDS: HYDROmorphone 1 MG/ML 1 ML SYRINGE IVP PRN ×2 (02:33→08:29)
[2020-06-24 07:28] LABS: Glucose,Whole Blood 303 mg/dL (75-99)
[2020-06-24] MEDS: metFORMIN 500 MG TAB PO SCH ×2 (07:48→20:45)
[2020-06-24] MEDS: CHOLECALCIFEROL 1,000 UNIT TAB PO SCH ×2 (07:48→20:45)
[2020-06-24] MEDS: hydroCHLOROthiazide 25 MG TAB PO SCH (07:48)
[2020-06-24] MEDS: PANTOPRAZOLE 40 MG TABLET PO SCH (07:48)
[2020-06-24] MEDS: lamoTRIgine 25 MG TAB PO SCH ×2 (07:48→20:45)
[2020-06-24] MEDS: INSULIN ASPART (NovoLOG) 100 UNIT/ML VIAL SQ SCH ×4 (07:48→20:44)
[2020-06-24] MEDS: amLODIPine 10 MG TAB PO SCH (07:48)
[2020-06-24 08:18] LABS: Basophils % (A) 0 %; Eosinophils # (A) 0.1 k/uL (0-0.7); Eosinophils % (A) 1 %; HCT 28.8 % (34.0-46.0); HGB 9.4 gm/dL (11.4-16.0); Lymphocytes % (A) 11 %; MCH 29.3 pg (25.0-35.0); MCHC 32.7 g/dL (31.0-37.0); MCV 89.7 fL (80.0-100.0); Mean Platelet Volume 7.1; Monocytes # (A) 0.4 k/uL (0-1.0); Monocytes % (A) 5 %; Neutrophils # (A) 7.3 k/uL (1.3-7.7); Neutrophils % (A) 83 %; Platelet Count 199 k/uL (150-450); RBC 3.21 m/uL (3.80-5.40); RDW 13.3 % (11.5-15.5); WBC 8.8 k/uL (3.8-10.6)
[2020-06-24] MEDS: SYMBICORT 80-4.5 MCG INHALER INHALATION SCH ×2 (09:25→20:16)
[2020-06-24] MEDS: IPRATROPIUM-ALBUTEROL 3 ML NEB INHALATION SCH ×3 (09:25→20:15)
[2020-06-24 11:29] LABS: Glucose,Whole Blood 105 mg/dL (75-99)
[2020-06-24 11:45] LABS: African American GFR (CKD) 98.4 (60.0-200.0); Anion Gap 9.3 mmol/L (4.00-12.00); BUN/Creat Ratio 28.33 Ratio (12.00-20.00); Carbon Dioxide 23.7 mmol/L (21.6-31.8); Non-African American GFR(CKD) 84.9 (60.0-200.0); Potassium 3.6 mmol/L (3.5-5.5)
[2020-06-24] MEDS: SODIUM CHLORIDE 0.9% 1,000 ML IV SCH ×2 (12:07→20:49)
[2020-06-24] MEDS ORDERED: HYDROmorphone 0.5 MG/0.5 ML SYRINGE IVP PRN ×3 (13:31→16:14)
[2020-06-24] MEDS ORDERED: DEXAMETHASONE SOD PHOSPHATE 10 MG/ML 1 ML VIAL IV ONE (13:31)
[2020-06-24] MEDS ORDERED: ONDANSETRON 4 MG/2 ML VIAL IVP PRN (13:31)
[2020-06-24] MEDS ORDERED: LACTATED RINGERS 1,000 ML IV SCH (13:31)
[2020-06-24] MEDS ORDERED: LIDOCAINE 1% (10MG/ML) FOR IV START INTRADERMA PRN (13:31)
[2020-06-24] MEDS ORDERED: ONDANSETRON 4 MG/2 ML VIAL IVP ONE (13:31)
[2020-06-24 14:01] LABS: Glucose,Whole Blood 128 mg/dL (75-99)
[2020-06-24] MEDS ORDERED: MIDAZOLAM 2 MG/2 ML VIAL ONE (14:47)
[2020-06-24] MEDS ORDERED: LIDOCAINE 1% INJ 10MG/ML (20 ML MDV) ONE (14:47)
[2020-06-24] MEDS ORDERED: fentaNYL (PF) 50 MCG/ML 2 ML AMP ONE (14:47)
[2020-06-24] MEDS ORDERED: ceFAZolin 1,000 MG in SODIUM CHLORIDE 0.9% 1,000 ML IRRIGATION ONE (15:28)
--- NOTE | 2020-06-24 15:51 | P.OP ---
Date of Procedure: 06/24/20 Procedure(s) Performed: PREOPERATIVE DIAGNOSIS: Right hip intertrochanteric fracture. POSTOPERATIVE DIAGNOSIS: Right hip intertrochanteric fracture. OPERATION: Right hip intertrochanteric fracture closed reduction and intramedullary nailing using [employer]ynthe[employer] IT nail. DETAIL MANAGER: Jennifer Leal (Assistance with: Patient positioning, retraction, exposure, hemostasis, fixation, irrigation, closure, dressing) ANESTHESIA: Spinal ESTIMATED BLOOD LOSS: 50 mL. COMPLICATIONS: None OPERATIVE FINDINGS: See dictation INDICATIONS: Mrs. Boss is a 80-year-old female with a history of right intertrochanteric fracture. The patient presents to the operating room today for closed reduction and intramedullary nailing. I discussed the risks of surgery in detail as being inclusive of but not limited to: Bleeding, infection, scarring, discomfort, blood vessel and/or nerve damage, need for further surger y, malunion, nonunion, gait disturbance including persistent or permanent limp, limb length inequality, arthritis, hardware failure, blood clot, pulmonary embolism, , and other risks. The consent form has been signed. PROCEDURE: After appropriate consent was obtained, the patient was taken to the operating room and placed in supine position. Spinal anesthetic was administered and after confirmation of adequate anesthesia, the patient was carefully placed in the supine position on the operating room table in the fracture table. The patient was placed up against a well-padded peroneal post. Care was taken to make sure about that all pressure points were adequately padded. The affected leg was placed in boot traction and the unaffected leg was placed in a well leg luna. Using gentle longitudinal distraction as well as adduction and internal rotation, the fracture was reduced as assessed by AP and lateral C-arm imaging. Once a satisfactory reduction had been obtained, the thigh was prepped and draped in the usual aseptic fashion using ChloraPrep. Ioban drape was used for the case and the patient received intravenous antibiotics prior to incision. Timeout was called, confirming patient identity, side, procedure, and administration of antibiotics. The incision was then created with a #10 blade just proximal to the greater trochanter laterally. It was carried down through skin into the subcutaneous tissues and through fascia. Hemostasis was obtained using electrocautery. The tip of the greater trochanter was palpated and a guide pin was placed at the tip and directed into the femoral shaft as assessed with C-arm imaging. Once optimal pin position had been obtained, a 17 mm reamer was used over the guide pin to create a path for the IT nail. IT nail selected was assembled to the insertion jig on the back table and bushings were checked for accuracy. The nail was then inserted using gentle mallet taps until it was fully deployed. The amount of rotation of the implant was assessed based on the amount of anteversion of the femoral neck. This was rotated to match the patient's femoral neck anteversion and the 125 helical blade guide was placed through the insertion jig and through an incision on the lateral side of the thigh more distal than the first. Once this guide was placed against the lateral cortex of the femur, a guide pin was drilled into the central region of the femoral head and neck as based on AP and lateral C-arm imaging. Once optimal pin position had been obtained, the guidewire was measured and appropriately sized helical blade was selected. The path for the helical blade was prepared using a tapered reamer. The helical blade was then inserted using gentle mallet taps along the guidewire until it was fully deployed. There was no displacement of the fracture during this step. The anti-rotation screw was locked down and the insertion apparatus for the helical blade was removed. The guide pin was then removed. Traction was then removed from the leg and the distal interlock was placed through the jig using standard technique. Finally, the insertion jig for the nail was removed and final C-arm images were taken and saved in both AP and lateral planes. The final x-rays showed satisfactory positioning of the implant and good reduction of the fracture. The top of the nail was plugged with a small quantity of bone wax and the incisions were then thoroughly irrigated with normal saline. Final hemostasis was obtained using electrocautery and closure of the fascia was performed using 0-Vicryl suture. 2-0 Vicryl suture was used in the subcutaneous tissues and standard skin closure was performed. Sterile dressing was then applied and the patient was carefully removed from the fracture table frame and placed onto the stretcher. The patient tolerated the procedure well. There were no complications and above noted blood loss. The patient was then subsequently transferred to recovery room in stable condition. Sponge and needle counts were correct.
[2020-06-24] MEDS ORDERED: TEMAZEPAM 15 MG CAP PO PRN (16:14)
[2020-06-24] MEDS ORDERED: MAGNESIUM HYDROXIDE 2,400 MG/10 ML CUP PO PRN (16:14)
[2020-06-24] MEDS ORDERED: NALOXONE 0.4 MG/ML 1 ML VIAL IV PRN (16:14)
--- NOTE | 2020-06-24 16:18 | FL ---
EXAMINATION TYPE: FL guidance operating room, XR Hip Limited RT DATE OF EXAM: 06/24/2020 CLINICAL HISTORY: Right hip fracture. TECHNIQUE: Fluoroscopy. COMPARISON: Pelvic and right hip x-ray June 22, 2019. FINDINGS: Fluoroscopic guidance was provided during open reduction internal fixation procedure perfo rmed by Dr. Bain. A total of 53 seconds of fluoroscopic time was utilized during the procedure and two spot intraoperative images are acquired. Images today show placement of large intramedullary jacqueline with distal transverse fixating screw and lar asif femoral neck fixating screws through comminuted intertrochanteric fracture right proximal femur. Improved satisfactory alignment seen on intraoperative images saved. IMPRESSION: As Above.
[2020-06-24 16:34] LABS: Glucose,Whole Blood 291 mg/dL (75-99)
[2020-06-24 16:36] LABS: Glucose,Whole Blood 169 mg/dL (75-99)
--- NOTE | 2020-06-24 16:47 | PN ---
PROGRESS NOTE DATE OF SERVICE: 06/24/2020 This 80-year-old woman who was admitted with a fall and right hip fracture also had right clavicle fracture. The patient is scheduled for surgery today. No chest pain. No palpitations. No fever. Patient cleared from medical for surgery. The patient is having mild fever. PHYSICAL EXAMINATION: Alert and oriented times three. Pulse 93, blood pressure 116/70, respirations 16, temperature 98.1, T-max 100.1. HEENT: Conjunctivae normal. NECK: No JVD. CARDIOVASCULAR: S1, S2 muffled. RESPIRATIONS: Breath sounds diminished in the bases. A few rhonchi. No crackles. ABDOMEN: Soft. Nontender. LEGS are no edema, no swelling. NERVOUS SYSTEM: No focal deficits. LAB STUDIES: WBC 8.8, hemoglobin 9.4. Sodium 134. UA noted. ASSESSMENT: 1. Fall and right hip fracture. 2. Right clavicle fracture. 3. Fever, possible acute urinary tract infection, present on admission. 4. Hyponatremia. 5. Increased WBC. 6. Asthma, chronic obstructive pulmonary disease. 7. Diabetes mellitus, Type 2. 8. Hypertension. 9. Hyperlipidemia. 10.History of pneumonia. 11.History of rheumatoid arthritis. 12.History of bilateral peripheral neuropathy. 13.History of essential tremors. 14.History of skin cancer. 15.History of cardiac catheterization. 16.Remote history of nicotine dependence. 17.FULL CODE. RECOMMENDATIONS AND DISCUSSION: Recommend to continue current medications, continue monitoring, management and symptomatic treatment. Otherwise at this time, I recommend empiric antibiotics, bronchodilators, chest x-ray, urine culture. Guarded prognosis. Further recommendations to follow. Closely follow with Orthopedic surgery. MMODL / IJN: [id number] /
[2020-06-24 17:30] LABS: Basophils % (A) 0 %; Eosinophils % (A) 0 %; HCT 29.9 % (34.0-46.0); HGB 8.8 gm/dL (11.4-16.0); Hypochromasia Marked; Lymphocytes # (A) 0.7 k/uL (1.0-4.8); Lymphocytes % (A) 7 %; MCH 28.2 pg (25.0-35.0); MCHC 29.5 g/dL (31.0-37.0); Mean Platelet Volume 6.8; Monocytes # (A) 0.3 k/uL (0-1.0); Monocytes % (A) 3 %; Neutrophils # (A) 9.2 k/uL (1.3-7.7); Neutrophils % (A) 89 %; Platelet Count 187 k/uL (150-450); RBC 3.13 m/uL (3.80-5.40); RDW 13.2 % (11.5-15.5); WBC 10.3 k/uL (3.8-10.6)
[2020-06-24 17:33] LABS: MCV 95.4 fL (80.0-100.0)
[2020-06-24] MEDS: LACTATED RINGERS 1,000 ML IV SCH ×2 (18:59→19:33)
--- NOTE | 2020-06-24 19:08 | XR ---
EXAMINATION TYPE: XR chest 1V portable DATE OF EXAM: 06/24/2020 COMPARISON: 06/22/2020 HISTORY: Short of breath TECHNIQUE: Single view FINDINGS: There is no heart failure nor confluent pneumonic infiltrate. There are calcified granuloma ta at the pulmonary maximus. Bony thorax is intact. There is no pleural effusion. IMPRESSION: No active cardiopulmonary disease. No change.
[2020-06-24] MEDS: HYDROmorphone 0.5 MG/0.5 ML SYRINGE IVP PRN (19:09)
[2020-06-24] MEDS: ENOXAPARIN 40 MG/0.4 ML SYRINGE SQ SCH (19:33)
[2020-06-24 20:35] LABS: Glucose,Whole Blood 230 mg/dL (75-99)
[2020-06-24] MEDS: HYDROcodone/APAP 5-325MG 1 EACH TAB PO PRN (20:44)
[2020-06-24] MEDS: SENNOSIDES-DOCUSATE SODIUM 1 EACH TAB PO SCH (20:45)
[2020-06-24] MEDS: PRAVASTATIN SODIUM 40 MG TAB PO SCH (20:45)
[2020-06-24] MEDS: lisinopriL 20 MG TAB PO SCH (20:45)
[2020-06-24] MEDS: ASPIRIN 81 MG PO SCH (20:45)
[2020-06-25] MEDS: LACTATED RINGERS 1,000 ML IV SCH ×3 (00:12→14:57)
[2020-06-25] MEDS: HYDROcodone/APAP 5-325MG 1 EACH TAB PO PRN ×2 (05:15→11:08)
[2020-06-25 07:06] LABS: Basophils % (A) 0 %; Eosinophils % (A) 0 %; HCT 22.4 % (34.0-46.0); Lymphocytes # (A) 0.8 k/uL (1.0-4.8); Lymphocytes % (A) 10 %; MCH 28.4 pg (25.0-35.0); MCHC 31.6 g/dL (31.0-37.0); Mean Platelet Volume 7.3; Monocytes # (A) 0.4 k/uL (0-1.0); Monocytes % (A) 5 %; Neutrophils # (A) 6.5 k/uL (1.3-7.7); Neutrophils % (A) 84 %; Platelet Count 167 k/uL (150-450); RDW 13.4 % (11.5-15.5); WBC 7.7 k/uL (3.8-10.6)
[2020-06-25 07:11] LABS: HGB 7.1 gm/dL (11.4-16.0)
[2020-06-25 07:12] LABS: MCV 89.9 fL (80.0-100.0)
[2020-06-25 07:21] LABS: Glucose,Whole Blood 173 mg/dL (75-99)
[2020-06-25] MEDS: INSULIN ASPART (NovoLOG) 100 UNIT/ML VIAL SQ SCH ×4 (07:46→20:09)
[2020-06-25] MEDS: PANTOPRAZOLE 40 MG TABLET PO SCH (07:46)
[2020-06-25 09:09] LABS: African American GFR (CKD) 104.5 (60.0-200.0); Anion Gap 6.5 mmol/L (4.00-12.00); Calcium 8.2 mg/dL (8.7-10.3); Carbon Dioxide 25.5 mmol/L (21.6-31.8); Non-African American GFR(CKD) 90.1 (60.0-200.0); Potassium 3.5 mmol/L (3.5-5.5)
[2020-06-25] MEDS: SYMBICORT 80-4.5 MCG INHALER INHALATION SCH ×2 (09:11→21:13)
[2020-06-25] MEDS: IPRATROPIUM-ALBUTEROL 3 ML NEB INHALATION SCH ×3 (09:12→21:13)
[2020-06-25] MEDS: amLODIPine 10 MG TAB PO SCH (09:29)
[2020-06-25] MEDS: hydroCHLOROthiazide 25 MG TAB PO SCH (09:29)
[2020-06-25] MEDS: lamoTRIgine 25 MG TAB PO SCH ×2 (09:29→21:25)
[2020-06-25] MEDS: metFORMIN 500 MG TAB PO SCH ×2 (09:29→20:06)
[2020-06-25] MEDS: CHOLECALCIFEROL 1,000 UNIT TAB PO SCH ×2 (09:29→20:06)
[2020-06-25] MEDS: ASPIRIN 81 MG PO SCH ×2 (09:29→20:07)
--- NOTE | 2020-06-25 11:19 | P.PN ---
Subjective Progress Note Date: 06/25/20 This patient is an 80-year-old female who is status-post right hip closed reduction and intramedullary nailing intertrochanteric hip fracture on 06/24/2020 Dr. Bain. She is also being followed for a right distal clavicle fracture, which is being treated non-operatively. Today's postoperative day #1. The patient states she is doing well and pain is currently well-controlled. She is experiencing mild pain in the right shoulder, although this is currently well-controlled. She was up with physical therapy this morning and she is currently sitting in the bedside chair. She has no complaints this morning. She has not yet had a bowel movement postoperatively. She denies abdominal pain. She denies chest pain, shortness breath, nausea, vomiting, fevers, chills. She denies numbness or tingling of the right lower extremity. She also denies dizziness or lightheadedness. Vital signs stable. Objective - Vital Signs Vital signs: Vital Signs Temp 98.4 F 06/25/20 07:00 Pulse 883 H 06/25/20 09:44 Resp 19 06/25/20 07:00 BP 136/64 06/25/20 07:00 Pulse Ox 96 06/25/20 07:00 Intake & Output 06/24/20 06/25/20 06/25/20 18:59 06:59 18:59 Intake Total 1101 350 Output Total 1175 2200 600 Balance -74 -1850 -600 Weight 61.689 kg Intake: IV 851 Intake, IV Titration 350 Amount Lactated Ringers 1,000 ml 350 @ 100 mls/hr IV .Q10H [facility] Rx#:[id number] Oral 250 Output: Urine 1125 2200 600 Estimated Blood Loss 50 Other: Voiding Method Indwelling Catheter Indwelling Catheter Indwelling Catheter - Exam on examination, the patient is sitting up in the bedside chair in no apparent distress. She is alert and oriented 3. On inspection of the right hip, there is clean, dry, intact surgical dressings with no bleeding or drainage through the dressing. There is mild pain on palpation of the thigh. The size soft and compressible. The right lower extremity is warm and well-perfused with brisk capillary refill distally. Dorsalis pedis pulse +2. Presented function are intact of the right lower extremity. The bilateral calves are soft and nontender to palpation. On inspection of the right upper extremity, the extremity is currently in a sling. On inspection of the right shoulder, there is ecchymosis of the posterior shoulder. No lacerations or abrasions. There is mild pain on palpation of the clavicle. Range of motion is not tested at this time. The right upper extremity is warm and well-perfused with brisk capillary refill distally. Radial pulse palpable. Motor and sensory function are intact of the right upper extremity. - Labs CBC & Chem 7: 06/25/20 06:30 06/25/20 06:30 Labs: Abnormal Lab Results - Last 24 Hours (Table) 06/24/20 06/24/20 06/24/20 Range/Units 07:37 11:28 14:00 RBC (3.80-5.40) m/uL Hgb (11.4-16.0) gm/dL Hct (34.0-46.0) % MCHC (31.0-37.0) g/dL Neutrophils # (1.3-7.7) k/uL Lymphocytes # (1.0-4.8) k/uL Sodium 134 L (135-145) mmol/L Creatinine (0.6-1.5) mg/dL BUN/Creatinine Ratio 28.33 H (12.00-20.00) Ratio Glucose 162 H (70-110) mg/dL POC Glucose (mg/dL) 105 H 128 H (75-99) mg/dL Calcium (8.7-10.3) mg/dL 06/24/20 06/24/20 06/24/20 Range/Units 16:31 16:34 16:55 RBC 3.13 L (3.80-5.40) m/uL Hgb 8.8 L (11.4-16.0) gm/dL Hct 29.9 L (34.0-46.0) % MCHC 29.5 L (31.0-37.0) g/dL Neutrophils # 9.2 H (1.3-7.7) k/uL Lymphocytes # 0.7 L (1.0-4.8) k/uL Sodium (135-145) mmol/L Creatinine (0.6-1.5) mg/dL BUN/Creatinine Ratio (12.00-20.00) Ratio Glucose (70-110) mg/dL POC Glucose (mg/dL) 291 H 169 H (75-99) mg/dL Calcium (8.7-10.3) mg/dL 06/24/20 06/25/20 06/25/20 Range/Units 20:34 06:30 06:30 RBC 2.50 L (3.80-5.40) m/uL Hgb 7.1 L D (11.4-16.0) gm/dL Hct 22.4 L (34.0-46.0) % MCHC (31.0-37.0) g/dL Neutrophils # (1.3-7.7) k/uL Lymphocytes # 0.8 L (1.0-4.8) k/uL Sodium (135-145) mmol/L Creatinine 0.5 L (0.6-1.5) mg/dL BUN/Creatinine Ratio 38.00 H (12.00-20.00) Ratio Glucose 189 H (70-110) mg/dL POC Glucose (mg/dL) 230 H (75-99) mg/dL Calcium 8.2 L (8.7-10.3) mg/dL 06/25/20 Range/Units 07:20 RBC (3.80-5.40) m/uL Hgb (11.4-16.0) gm/dL Hct (34.0-46.0) % MCHC (31.0-37.0) g/dL Neutrophils # (1.3-7.7) k/uL Lymphocytes # (1.0-4.8) k/uL Sodium (135-145) mmol/L Creatinine (0.6-1.5) mg/dL BUN/Creatinine Ratio (12.00-20.00) Ratio Glucose (70-110) mg/dL POC Glucose (mg/dL) 173 H (75-99) mg/dL Calcium (8.7-10.3) mg/dL Microbiology - Last 24 Hours (Table) 06/23/20 22:00 Urine Culture - Preliminary Urine,Catheterized Assessment and Plan Assessment: Status-post right hip closed reduction and intramedullary nailing intertrochanteric hip fracture on 06/24/2020. Postoperative day #1. Nonoperative management of the right distal clavicle fracture. Plan: - Patient may bear 50% of body weight on her right lower extremity with a walker. Up with assistance. Partial weightbearing on the right upper extremity. She may use a sling as needed for comfort. - Dressing changes as needed to the right hip. - Physical therapy for gait and balance training. - Pain management as needed. Aspirin 81 mg BID for DVT prophylaxis. - Postoperative antibiotics complete. - Hemoglobin 7.1 this morning, patient is currently asymptomatic. Will defer to internal medicine if transfusion is needed. - anticipate discharge to rehab on Saturday or Saturday, pending medical clearance.
[2020-06-25 11:45] LABS: Glucose,Whole Blood 211 mg/dL (75-99)
[2020-06-25] MEDS: HYDROmorphone 0.5 MG/0.5 ML SYRINGE IVP PRN ×2 (14:54→20:08)
--- NOTE | 2020-06-25 15:41 | PN ---
PROGRESS NOTE DATE OF SERVICE: 06/25/2020 This is an 80-year-old woman who was admitted with a fall and right hip fracture. She is being closely monitored at this time. Dr. Bain performed right hip closed reduction and intramedullary nailing by Synthes IT nail. The patient is being closely monitored at this time. Today's hemoglobin has dropped to 7.1. Patient complains of weakness. PAST MEDICAL HISTORY: Reviewed. REVIEW OF SYSTEMS: CARDIOVASCULAR: No angina or palpitations. RESPIRATORY: As mentioned earlier. GI: As mentioned earlier. : As mentioned earlier. NERVOUS SYSTEM: No numbness or weakness. CURRENT MEDICATIONS: Reviewed and include. 1. [place]. 2. DuoNeb. 3. Norvasc. 4. Aspirin. 5. Symbicort. 6. Rocephin. 7. Lovenox. 8. HydroDIURIL. 9. Dilaudid. 10.Lamictal. 11.Milk of magnesia. 12.Glucophage. 13.Narcan. 14.Protonix. 15.Pravachol. 16.Senokot. 17.Restoril. PHYSICAL EXAMINATION: GENERAL: Patient is alert and oriented times three. VITAL SIGNS: Pulse 88, blood pressure 136/64, respirations 19, temperature 98.4, pulse ox 96% on 4 liters. HEENT: Conjunctivae normal. NECK: No jugular venous distention. RESPIRATORY: Breath sounds diminished at the bases. Bilateral scattered rhonchi and crackles. HEART: S1 and S2, muffled. ABDOMEN: Soft, no tenderness. EXTREMITIES: Status post fracture and surgery. NERVOUS: Diffusely weak and emaciated. LABS: WBC 7.2, hemoglobin 7.1. Other labs are noted. ASSESSMENT: 1. Fall and right hip fracture status post closed reduction and intramedullary nailing using Synthes IT nail. 2. Anemia, symptomatic. 3. Right clavicular fracture. 4. Fever possible acute urinary tract infection present on admission. 5. Hyponatremia. 6. Increased WBC. 7. Mild protein calorie malnutrition. 8. Asthma and chronic obstructive pulmonary disease. 9. Diabetes mellitus type 2. 10.Hypertension. 11.Hyperlipidemia. 12.History of pneumonia. 13.History rheumatoid arthritis. 14.History of bilateral peripheral neuropathy. 15.History of essential tremors. 16.History of skin cancer. 17.History of cardiac catheterization. 18.Remote history of nicotine dependence. 19.FULL CODE. RECOMMENDATIONS AND DISCUSSION: Recommend to continue current medications and continue symptomatic treatment. I would recommend 1 unit transfusion with Lasix 20 after that. Stop the IV fluids. Otherwise, continue to monitor. DVT prophylaxis. Closely follow with Orthopedic Surgery. PT/OT evaluation, possible ECF rehab. Continue the rest of the medications. Supplement with multivitamins. Discussed with the family. Further recommendations to follow. MMODL / IJN: [id number] /
[2020-06-25 17:01] LABS: Glucose,Whole Blood 143 mg/dL (75-99)
[2020-06-25] MEDS: ENOXAPARIN 40 MG/0.4 ML SYRINGE SQ SCH (17:05)
[2020-06-25] MEDS ORDERED: FUROSEMIDE 10 MG/ML 2 ML VIAL IV ONE (17:58)
[2020-06-25 19:58] LABS: Glucose,Whole Blood 241 mg/dL (75-99)
[2020-06-25] MEDS: lisinopriL 20 MG TAB PO SCH (20:07)
[2020-06-25] MEDS: PRAVASTATIN SODIUM 40 MG TAB PO SCH (20:07)
[2020-06-25] MEDS: SENNOSIDES-DOCUSATE SODIUM 1 EACH TAB PO SCH (20:07)
[2020-06-26 06:53] LABS: Basophils % (A) 0 %; Eosinophils # (A) 0.1 k/uL (0-0.7); Eosinophils % (A) 1 %; HCT 26.1 % (34.0-46.0); Lymphocytes # (A) 0.9 k/uL (1.0-4.8); Lymphocytes % (A) 14 %; MCH 28.9 pg (25.0-35.0); MCHC 33.1 g/dL (31.0-37.0); MCV 87.4 fL (80.0-100.0); Mean Platelet Volume 7.1; Monocytes # (A) 0.3 k/uL (0-1.0); Monocytes % (A) 5 %; Neutrophils # (A) 5.4 k/uL (1.3-7.7); Neutrophils % (A) 80 %; Platelet Count 213 k/uL (150-450); RBC 2.99 m/uL (3.80-5.40); RDW 14.1 % (11.5-15.5); WBC 6.7 k/uL (3.8-10.6)
[2020-06-26 06:54] LABS: HGB 8.7 gm/dL (11.4-16.0)
[2020-06-26 07:13] LABS: Glucose,Whole Blood 171 mg/dL (75-99)
[2020-06-26] MEDS: INSULIN ASPART (NovoLOG) 100 UNIT/ML VIAL SQ SCH ×4 (08:15→21:20)
[2020-06-26] MEDS: CHOLECALCIFEROL 1,000 UNIT TAB PO SCH ×2 (08:16→21:20)
[2020-06-26] MEDS: PANTOPRAZOLE 40 MG TABLET PO SCH (08:16)
[2020-06-26] MEDS: metFORMIN 500 MG TAB PO SCH ×2 (08:16→21:20)
[2020-06-26] MEDS: ASPIRIN 81 MG PO SCH ×2 (08:16→21:20)
[2020-06-26] MEDS: MULTIVITAMINS, THERA 1 EACH TAB PO SCH (08:16)
[2020-06-26] MEDS: lamoTRIgine 25 MG TAB PO SCH ×2 (08:16→21:19)
[2020-06-26] MEDS: hydroCHLOROthiazide 25 MG TAB PO SCH (08:16)
[2020-06-26] MEDS: amLODIPine 10 MG TAB PO SCH (08:16)
[2020-06-26] MEDS: HYDROcodone/APAP 5-325MG 1 EACH TAB PO PRN (08:21)
[2020-06-26] MEDS: IPRATROPIUM-ALBUTEROL 3 ML NEB INHALATION SCH ×4 (09:30→20:00)
[2020-06-26] MEDS: SYMBICORT 80-4.5 MCG INHALER INHALATION SCH ×2 (09:30→19:59)
--- NOTE | 2020-06-26 10:39 | P.PN ---
Subjective Progress Note Date: 06/26/20 This patient is an 80-year-old female who is status-post right hip closed reduction and intramedullary nailing intertrochanteric hip fracture on 06/24/2020 Dr. Bain. She is also being followed for a right distal clavicle fracture, which is being treated non-operatively. Today's postoperative day #2. The patient states overall she is feeling much better today. Her hemoglobin was 7.1 yesterday, she was transfused 1 unit of PRBCs per internal medicine. Hemoglobin 8.7 this morning. Patient does state her pain is out of control this morning. She states it increases with any activity. Per nursing, she has been requiring IV Dilaudid for adequate pain control. Patient states she has had a bowel movement postoperatively. She is tolerating her diet well. She denies chest pain, soreness breath, nausea, vomiting, fevers, chills. She denies numbness or tingling of the right upper extremity, or the right lower extremity. Vital signs stable. Objective - Vital Signs Vital signs: Vital Signs Temp 98.0 F 06/26/20 07:00 Pulse 73 06/26/20 07:00 Resp 16 06/26/20 07:00 BP 126/71 06/26/20 07:00 Pulse Ox 100 06/26/20 07:00 Intake & Output 06/25/20 06/26/20 06/26/20 18:59 06:59 18:59 Intake Total 585 Output Total 600 650 Balance -15 -650 Weight 61.689 kg Intake: Intake, IV Titration 275 Amount Sodium Chloride 0.9% 1, 225 000 ml @ 75 mls/hr IV . [id number] [facility] Rx#:[id number] cefTRIAXone 1 gm In 50 Sodium Chloride 0.9% 50 ml @ 100 mls/hr IVPB Q24HR [facility] Rx#:[id number] Blood Product 310 Rc As-1 Unit 310 [id number] Output: Urine 600 650 Other: Voiding Method Indwelling Catheter Bedside Commode Bedside Commode Bedpan Bedpan Diaper Diaper # Voids 2 # Bowel Movements 1 - Exam On examination, the patient is sitting up in bed in no apparent distress. She is alert and oriented 3. On inspection of the right hip, there is clean, dry, intact surgical dressings with no bleeding or drainage through the dressing. There is mild pain on palpation of the thigh. The thigh is soft and compressible. The right lower extremity is warm and well-perfused with brisk capillary refill distally. Dorsalis pedis pulse +2. Motor and sensory function are intact of the right lower extremity. The bilateral calves are soft and nontender to palpation. On inspection of the right upper extremity, the extremity is currently in a sling. On inspection of the right shoulder, there is ecchymosis of the posterior shoulder. No lacerations or abrasions. There is mild pain on palpation of the clavicle. Range of motion is not tested at this time. The right upper extremity is warm and well-perfused with brisk capillary refill distally. R adial pulse palpable. Motor and sensory function are intact of the right upper extremity. - Labs CBC & Chem 7: 06/26/20 06:15 06/25/20 06:30 Labs: Abnormal Lab Results - Last 24 Hours (Table) 06/25/20 06/25/20 06/25/20 Range/Units 11:36 11:44 17:00 RBC (3.80-5.40) m/uL Hgb (11.4-16.0) gm/dL Hct (34.0-46.0) % Lymphocytes # (1.0-4.8) k/uL POC Glucose (mg/dL) 211 H 143 H (75-99) mg/dL Crossmatch See Detail 06/25/20 06/26/20 06/26/20 Range/Units 19:57 06:15 07:11 RBC 2.99 L (3.80-5.40) m/uL Hgb 8.7 L D (11.4-16.0) gm/dL Hct 26.1 L (34.0-46.0) % Lymphocytes # 0.9 L (1.0-4.8) k/uL POC Glucose (mg/dL) 241 H 171 H (75-99) mg/dL Crossmatch Microbiology - Last 24 Hours (Table) 06/23/20 22:00 Urine Culture - Preliminary Urine,Catheterized Gram Neg Bacilli Assessment and Plan Assessment: Status-post right hip closed reduction and intramedullary nailing intertrochanteric hip fracture on 06/24/2020. Postoperative day #2. Nonoperative management of the right distal clavicle fracture. Post-operative anemia. Plan: - Patient may bear 50% of body weight on her right lower extremity with a walker. Up with assistance. Partial weightbearing on the right upper extremity. She may use a sling as needed for comfort. - Dressing changes as needed to the right hip. - Physical therapy for gait and balance training. - Pain management as needed, [place] increased to 7.5/325 this morning. Aspirin 81 mg BID for DVT prophylaxis. - Hemoglobin up to 8.7 this morning, will continue to monitor. - Anticipate discharge to rehab on Saturday or Saturday, pending medical clearance.
[2020-06-26 11:42] LABS: Glucose,Whole Blood 143 mg/dL (75-99)
[2020-06-26 16:41] LABS: Glucose,Whole Blood 163 mg/dL (75-99)
[2020-06-26] MEDS: ENOXAPARIN 40 MG/0.4 ML SYRINGE SQ SCH (16:53)
[2020-06-26] MEDS: HYDROcodone/APAP 7.5-325MG 1 EACH TAB PO PRN (16:53)
[2020-06-26 20:56] LABS: Glucose,Whole Blood 191 mg/dL (75-99)
[2020-06-26] MEDS: PRAVASTATIN SODIUM 40 MG TAB PO SCH (21:18)
[2020-06-26] MEDS: lisinopriL 20 MG TAB PO SCH (21:18)
[2020-06-26] MEDS: SENNOSIDES-DOCUSATE SODIUM 1 EACH TAB PO SCH (21:19)
--- NOTE | 2020-06-27 01:14 | PN ---
PROGRESS NOTE DATE OF SERVICE: 06/26/2020 This 80-year-old woman who was admitted after a fall and right hip fracture had surgery by Dr. Bain. The patient also had transfusion. Sensorium much improved. Hemoglobin is 8.7. No chest pain. No palpitations. No fever. PHYSICAL EXAMINATION: On exam, alert and oriented x3. Pulse 81, blood pressure 132/66, respirations 16, temperature 98.4, pulse ox 100% on room air. HEENT: Conjunctivae normal. NECK: No jugular venous distention. CARDIOVASCULAR: S1, S2 muffled. RESPIRATORY: Breath sounds diminished at the bases. No rhonchi, no crackles. ABDOMEN: Soft, nontender. LEGS: Status post surgery. NERVOUS SYSTEM: Diffusely weak. LABS: WBC 6.7, hemoglobin 8.7. Accu-Cheks noted. ASSESSMENT: 1. Fall and right hip fracture status post closed reduction and intramedullary nailing using Synthes IT nail. 2. Anemia, symptomatic, status post transfusion. 3. Right clavicular fracture. 4. Fever, possible acute urinary tract infection, present on admission. 5. Hyponatremia. 6. Increased WBC. 7. Mild protein calorie malnutrition. 8. Asthma and chronic obstructive pulmonary disease. 9. Diabetes mellitus type 2. 10.Hypertension. 11.Hyperlipidemia. 12.History of pneumonia. 13.History of rheumatoid arthritis. 14.History of bilateral peripheral neuropathy. 15.History of essential tremors. 16.History of skin cancer. 17.History of cardiac catheterization. 18.History of remote history of nicotine dependence. 19.FULL CODE. RECOMMENDATIONS AND DISCUSSION: Recommend to continue current medications, continue symptomatic treatment. Continue with monitoring hemoglobin closely. Continue with DVT prophylaxis. Continue the rest of medications. PT, OT evaluation, possible ECF rehab. Closely follow with Orthopedic Surgery. Further recommendations to follow. MMODL / IJN: [id number] /
[2020-06-27] MEDS: HYDROcodone/APAP 7.5-325MG 1 EACH TAB PO PRN ×2 (02:08→09:03)
--- NOTE | 2020-06-27 06:32 | P.CONS ---
History of Present Illness - Chief Complaint Walking difficulty - History of Present Illness I had the opportunity to see patient for inpatient rehab consultation with regard to walking difficulty. She was admitted status post fall at home June 22 and right hip pain. X-ray demonstrated intertrochanteric fracture. Humeral x-ray demonstrated displaced right clavicle fracture. CT of head and C-spine negative but with some pulmonary parenchymal thickening or scarring. Seen by Dr. Lundberg for medical. Patient underwent IM nail June [address] Bain. His started therapy. PT reports two-person maximal assistance for bed mobility and 2 person minimal to moderate assistance to stand and transfer. Ambulates 6 feet with hemiwalker 2 person minimal assistance and complains of fatigue and pain. OT prescribed. Previous functional history as elicited from patient: 80-year-old right-handed white female who is lives in one floor home with . Both are retired. does the driving. Patient previously independent with cooking, laundry, standing shower and gait with a rare need of standard cane. PMD Nelda Mc at Dr. Jordan office. Denies tobacco or alcohol. Family medical history of mother with arthritis. Review of Systems Review of systems: ENT: Denies sneezes or discharge. Eyes: Denies discharge or photophobia. Cardiac: Denies chest pain or palpitation. Pulmonary: Denies cough or shortness of breath. Breast: Denies discharge or lumps. Gastrointestinal: Denies nausea, emesis, constipation, diarrhea. Genitourinary: Denies discharge or frequency. Musculoskeletal: Right hip and thigh discomfort. Neurologic: Denies motor or sensory change. Endocrine: Denies shakes or sweats. Oncology: Denies cancers. Dermatologic: Denies rash, itching, pruritus. ALLERGY/immunology: Denies sneezes, rashes. Past Medical History Past Medical History: Asthma, COPD, Diabetes Mellitus, Hyperlipidemia, Hyperte nsion, Pneumonia, Rheumatoid Arthritis (RA) Additional Past Medical History / Comment(s): skin CA, "heart misses a beat", heart murmur, History of Any Multi-Drug Resistant Organisms: None Reported Past Surgical History: Heart Catheterization, Hysterectomy Additional Past Surgical History / Comment(s): cath in 2007, (heart cath x2), ear surgery, skin CA remove, L Breast mastectomy, Left foot 1.5 toe's amp, right foot 1 toe amp Past Anesthesia/Blood Transfusion Reactions: No Reported Reaction, Motion Sickness Past Psychological History: No Psychological Hx Reported Smoking Status: Former smoker Past Alcohol Use History: Daily Past Drug Use History: None Reported - Past Family History Father Additional Family Medical History / Comment(s): states, "lung disease" Mother Additional Family Medical History / Comment(s): estreme "bone disease" Medications and Allergies Home Medications Medication Instructions Recorded Confirmed Type Exenatide [Byetta] 5 mcg SQ BID 06/11/14 06/22/20 History Mometasone/Formoterol [Dulera 100 2 puff INHALATION RT-BID 06/11/14 06/22/20 History Mcg/5 Mcg Inhaler] Pravastatin Sodium [Pravachol] 40 mg PO HS 06/11/14 06/22/20 History Ramipril 10 mg PO HS 06/11/14 06/22/20 History hydroCHLOROthiazide [Hydrodiuril] 25 mg PO DAILY 06/11/14 06/22/20 History Albuterol Nebulized [Ventolin 2.5 mg INHALATION RT-QID PRN 04/12/16 06/22/20 History Nebulized] Aspirin EC [Ecotrin] 81 mg PO HS 04/12/16 06/22/20 History Denosumab [Prolia] 60 mg SQ Q180D 04/12/16 06/22/20 History Ubidecarenone [Co Q-10] 200 mg PO HS 04/12/16 06/22/20 History amLODIPine [Norvasc] 10 mg PO DAILY #20 tablet 09/23/19 06/22/20 Rx Albuterol Inhaler [Ventolin Hfa 2 puff INHALATION RT-QID PRN 06/22/20 06/22/20 History Inhaler] Cholecalciferol [Vitamin D3 (25 1,000 unit PO BID 06/22/20 06/22/20 History Mcg = 1000 Iu)] lamoTRIgine [LaMICtal Xr] 50 mg PO BID 06/22/20 06/22/20 History metFORMIN HCL [Glucophage] 500 mg PO BID 06/22/20 06/22/20 History Allergies Allergy/AdvReac Type Severity Reaction Status Date / Time No Known Allergies Allergy Verified 06/22/20 15:51 Physical Exam Vitals: Vital Signs Temp Pulse Resp BP Pulse Ox 06/27/20 02:04 98.0 F 72 118/58 98 06/26/20 18:53 98.5 F 74 134/61 100 06/26/20 15:00 98.4 F 81 16 132/66 100 06/26/20 07:00 98.0 F 73 16 126/71 100 Intake and Output 06/26/20 06/26/20 06/27/20 14:59 22:59 06:59 Intake Total 1310 Output Total 500 500 Balance 1310 -500 -500 Intake: Intake, IV Titration 50 Amount cefTRIAXone 1 gm In 50 Sodium Chloride 0.9% 50 ml @ 100 mls/hr IVPB Q24HR [facility] Rx#:[id number] Oral 1260 Output: Urine 500 500 Other: Voiding Method Bedside Commode Bedside Commode Bedpan Bedpan Diaper Diaper Skin: Atrophic, intact. General: Medium build and comfortable appearance. Head: Normocephalic, atraumatic. Eyes: Symmetric. Pupils equal round. Ears: Symmetric. Hearing within normal limits. Mouth: Clear. Neck: Supple. Carotid without bruit. Cardiac: Regular rate and rhythm. Lungs: Clear anteriorly and posteriorly. Abdomen: Soft active nontender. Extremities: Normal tone. Right hip clean and bandaged laterally. Neurological: Mental status: Alert, cooperative, pleasant. Cranial nerves: Symmetric facial tone and trapezius. Motor: Normal strength and isolation all 4 limbs. Sensation: Intact throughout. DTRs: Symmetric and equal throughout. Mobility: Did not attempt to sit or stand this early a.m. by myself. Results CBC & Chem 7: 06/26/20 06:15 06/25/20 06:30 Labs: Abnormal Lab Results - Last 24 Hours (Table) 06/26/20 06/26/20 06/26/20 Range/Units 06:15 07:11 11:41 RBC 2.99 L (3.80-5.40) m/uL Hgb 8.7 L D (11.4-16.0) gm/dL Hct 26.1 L (34.0-46.0) % Lymphocytes # 0.9 L (1.0-4.8) k/uL POC Glucose (mg/dL) 171 H 143 H (75-99) mg/dL 06/26/20 06/26/20 Range/Units 16:38 20:55 RBC (3.80-5.40) m/uL Hgb (11.4-16.0) gm/dL Hct (34.0-46.0) % Lymphocytes # (1.0-4.8) k/uL POC Glucose (mg/dL) 163 H 191 H (75-99) mg/dL Microbiology - Last 24 Hours (Table) 06/23/20 22:00 Urine Culture - Final Urine,Catheterized Escherichia coli Assessment and Plan (1) Intertrochanteric fracture of right hip Current Visit: Yes Status: Acute Code(s): S72.141A - DISPLACED INTERTROCHANTERIC FRACTURE OF RIGHT FEMUR, INIT SNOMED Code(s): 900716020 (2) Right clavicle fracture Current Visit: Yes Status: Acute Code(s): S42.001A - FRACTURE OF UNSP PART OF RIGHT CLAVICLE, INIT FOR CLOS FX SNOMED Code(s): 70816329 Plan: Impression: 1. Walking only. 2. Right hip intertrochanteric fracture status post IM nail. 3. Right clavicle fracture currently treated slinging. 4. COPD with asthma. 5. Hypertension. 6. Dyslipidemia. 7. Rheumatoid arthritis. Comments and plan: At this time PT ongoing. Will require OT note. I discussed possible inpatient rehab with patient she seems agreeable already. Would anticipate this need at this time.
[2020-06-27 07:03] LABS: Glucose,Whole Blood 175 mg/dL (75-99)
[2020-06-27 07:38] VITALS: BP 130/63; RESP 17; TEMP 98.4
[2020-06-27] MEDS: ASPIRIN 81 MG PO SCH (08:02)
[2020-06-27] MEDS: hydroCHLOROthiazide 25 MG TAB PO SCH (08:02)
[2020-06-27] MEDS: lamoTRIgine 25 MG TAB PO SCH (08:03)
[2020-06-27] MEDS: CHOLECALCIFEROL 1,000 UNIT TAB PO SCH (08:03)
[2020-06-27] MEDS: PANTOPRAZOLE 40 MG TABLET PO SCH (08:03)
[2020-06-27] MEDS: INSULIN ASPART (NovoLOG) 100 UNIT/ML VIAL SQ SCH ×2 (08:03→12:37)
[2020-06-27] MEDS: metFORMIN 500 MG TAB PO SCH (08:03)
[2020-06-27] MEDS: amLODIPine 10 MG TAB PO SCH (08:03)
[2020-06-27] MEDS: IPRATROPIUM-ALBUTEROL 3 ML NEB INHALATION SCH ×2 (08:04→13:33)
[2020-06-27] MEDS: SYMBICORT 80-4.5 MCG INHALER INHALATION SCH (08:05)
[2020-06-27 08:24] VITALS: PULSE 72
--- NOTE | 2020-06-27 08:30 | P.DS ---
Providers Date of admission: 06/22/20 15:05 Expected date of discharge: 06/27/20 Attending physician: Dayne Bain Consults: 06/22/20 15:06 Consult Physician Routine Consulting Provider: Verenice Hampton Consult Reason/Comments: Medical clearance Do you want consulting provider notified?: Yes 06/25/20 07:42 Consult Physician Routine Consulting Provider: Devon Frederick Consult Reason/Comments: evaluate for inpatient rehab Do you want consulting provider notified?: Yes Primary care physician: Carmela Morris - Discharge Diagnosis(es) (1) Intertrochanteric fracture of right hip Current Visit: Yes Status: Acute (2) Fall Current Visit: Yes Status: Acute (3) Right clavicle fracture Current Visit: Yes Status: Acute Hospital Course: This is an 80 year-old female who is admitted to [facility] on 06/22/2020 after falling and sustaining injury to the right hip. On exam and x- ray in the emergency department she is found to have an intertrochanteric fracture of the right hip. As well as a distal clavicle fracture of the right shoulder. She is admitted to our service for surgical intervention and care. Patient is taken to surgery for close reduction and insertion of intertrochanteric nail of the right hip on 06/24/2020. The procedure was performed without complication or sequelae. She is in a sling for the right clavicle fracture. The patient is doing fairly well postoperatively. she did receive 1 unit of packed red blood cells on postoperative day #1 for a hemoglobin of 7.7. Vital signs and labs are stable on postoperative day #3. Patient is discharged to inpatient rehab in good condition. Please see med rec for accurate list of discharge medications. Patient Condition at Discharge: Stable Plan - Discharge Summary Discharge Rx Participant: No New Discharge Prescriptions: New Aspirin [Adult Low Dose Aspirin EC] 81 mg PO BID #1 tablet. HYDROcodone/APAP 5-325MG [Cromwell 5-325] 1 - 2 each PO Q6H PRN #40 tab PRN Reason: Pain Sennosides-Docusate Sodium [Senokot-S] 1 tab PO BID #60 tablet No Action Pravastatin Sodium [Pravachol] 40 mg PO HS Ramipril 10 mg PO HS hydroCHLOROthiazide [Hydrodiuril] 25 mg PO DAILY Mometasone/Formoterol [Dulera 100 Mcg/5 Mcg Inhaler] 2 puff INHALATION RT-BID Exenatide [Byetta] 5 mcg SQ BID Ubidecarenone [Co Q-10] 200 mg PO HS Denosumab [Prolia] 60 mg SQ Q180D Aspirin EC [Ecotrin] 81 mg PO HS Albuterol Nebulized [Ventolin Nebulized] 2.5 mg INHALATION RT-QID PRN PRN Reason: Shortness Of Breath amLODIPine [Norvasc] 10 mg PO DAILY #20 tablet lamoTRIgine [LaMICtal Xr] 50 mg PO BID Albuterol Inhaler [Ventolin Hfa Inhaler] 2 puff INHALATION RT-QID PRN PRN Reason: Shortness Of Breath metFORMIN HCL [Glucophage] 500 mg PO BID Cholecalciferol [Vitamin D3 (25 Mcg = 1000 Iu)] 1,000 unit PO BID Discharge Medication List Exenatide [Byetta] 5 mcg SQ BID 06/11/14 [History] Mometasone/Formoterol [Dulera 100 Mcg/5 Mcg Inhaler] 2 puff INHALATION RT-BID 06/11/14 [History] Pravastatin Sodium [Pravachol] 40 mg PO HS 06/11/14 [History] Ramipril 10 mg PO HS 06/11/14 [History] hydroCHLOROthiazide [Hydrodiuril] 25 mg PO DAILY 06/11/14 [History] Albuterol Nebulized [Ventolin Nebulized] 2.5 mg INHALATION RT-QID PRN 04/12/16 [History] Aspirin EC [Ecotrin] 81 mg PO HS 04/12/16 [History] Denosumab [Prolia] 60 mg SQ Q180D 04/12/16 [History] Ubidecarenone [Co Q-10] 200 mg PO HS 04/12/16 [History] amLODIPine [Norvasc] 10 mg PO DAILY #20 tablet 09/23/19 [Rx] Albuterol Inhaler [Ventolin Hfa Inhaler] 2 puff INHALATION RT-QID PRN 06/22/20 [History] Cholecalciferol [Vitamin D3 (25 Mcg = 1000 Iu)] 1,000 unit PO BID 06/22/20 [History] lamoTRIgine [LaMICtal Xr] 50 mg PO BID 06/22/20 [History] metFORMIN HCL [Glucophage] 500 mg PO BID 06/22/20 [History] Aspirin [Adult Low Dose Aspirin EC] 81 mg PO BID #1 tablet. 06/27/20 [Rx] HYDROcodone/APAP 5-325MG [Cromwell 5-325] 1 - 2 each PO Q6H PRN #40 tab 06/27/20 [Rx] Sennosides-Docusate Sodium [Senokot-S] 1 tab PO BID #60 tablet 06/27/20 [Rx] Follow up Appointment(s)/Referral(s): Carmela Morris DO [Primary Care Provider] - 1-2 days Jennifer Leal, ROCHELLE [PHYSICIAN AQUATIC HABITAT BIOLOGIST] - 3 Weeks Activity/Diet/Wound Care/Special Instructions: 50% wt bearing RLE w walker. Maintain sling RUE. May shower. Keep exofin tape intact 2 weeks. Discharge Disposition: TRANSFER TO SNF/ECF
[2020-06-27 11:37] LABS: Glucose,Whole Blood 155 mg/dL (75-99)
[2020-06-27] MEDS: MULTIVITAMINS, THERA 1 EACH TAB PO SCH (12:37)
--- NOTE | 2020-06-27 17:15 | PN ---
PROGRESS NOTE DATE OF SERVICE: 06/27/2020 This 80-year-old woman who was admitted after a hip fracture had surgery. The patient is slated to go to inpatient rehab at this time. Patient is being closely monitored. The patient also had right clavicular fracture. The patient also had acute UTI. Patient is on IV antibiotics. Urine culture showed E coli which is poly-sensitive. Past medical history reviewed. REVIEW OF SYSTEMS: CARDIOVASCULAR SYSTEM: No angina, palpitations. RESPIRATORY SYSTEM: As mentioned earlier. GI: As mentioned earlier. : No dysuria or retention. NERVOUS SYSTEM: No numbness, weakness. CURRENT MEDICATIONS: Reviewed. They include: 1. [place] 7.5. 2. DuoNeb q.i.d. and p.r.n. 3. Norvasc 10 mg. 4. Aspirin. 5. Symbicort. 6. Rocephin. 7. HydroDIURIL. 8. Dilaudid. 9. NovoLog. 10.Lamictal. 11.Zestril. 12.Glucophage. 13.Narcan. 14.Protonix. 15.Pravachol. 16.Restoril. PHYSICAL EXAMINATION: Patient is alert, oriented x2. Pulse 69, blood pressure 130/63, respirations 17, temperature 98.4, pulse ox 99% on room air. HEENT: Conjunctivae normal. Oral mucosa moist. NECK: No jugular venous distention. No carotid bruit. No lymph node enlargement. CARDIOVASCULAR SYSTEM: S1, S2 muffled. RESPIRATORY SYSTEM: Breath sounds diminished at the bases. Scattered rhonchi and crackles. ABDOMEN: Soft, non-tender. LEGS: Status post fracture. NERVOUS SYSTEM: No focal deficit. LABS: Accu-Cheks noted. Cultures noted. Hemoglobin 8.7. ASSESSMENT: 1. Fall and right hip fracture, status post closed reduction, intramedullary nailing using Synthes IT nail. 2. Anemia, symptomatic, status post transfusion. 3. Right clavicular fracture. 4. Fever, possible acute urinary tract infection, present on admission, with acute Escherichia coli. 5. Hyponatremia. 6. Increased white count. 7. Mild protein-calorie malnutrition. 8. Asthma, chronic obstructive pulmonary disease. 9. Diabetes mellitus, type 2. 10.Hypertension. 11.Hyperlipidemia. 12.History of pneumonia. 13.History of rheumatoid arthritis. 14.History of bilateral peripheral neuropathy. 15.History of essential tremors. 16.History of skin cancer. 17.History of cardiac catheterization. 18.Remote history of nicotine dependence. 19.FULL CODE. RECOMMENDATIONS AND DISCUSSION: I recommend to continue current medications, continue with the monitoring, symptomatic treatment. Otherwise, at this time I recommend continuing with bronchodilators. Continue with Ceftin. Otherwise, resume the rest of the medications. DVT prophylaxis. Further recommendations to follow. MMODL / IJN: [id number] /
== END 2020-06-27 15:04 | DRG 481 ==
LOC: EC 13:34 → 4SSUR 15:05
PROVIDERS: ADMIT Orthopaedic Surgery; ATTEND Orthopaedic Surgery
PROC: 2W38XYZ Immobilization of Right Upper Extremity using Other Device (ICD-10-PCS; 2020-06-22)
PROC: 0QS636Z Reposition Right Upper Femur with Intramedullary Internal Fixation Device, Percutaneous Approach (ICD-10-PCS; principal; 2020-06-24 14:45)
PROC: 30233N1 Transfusion of Nonautologous Red Blood Cells into Peripheral Vein, Percutaneous Approach (ICD-10-PCS; 2020-06-25)
DX: S72.141A Displaced intertrochanteric fracture of right femur, initial encounter for closed fracture (principal); N39.0 Urinary tract infection, site not specified; E44.1 Mild protein-calorie malnutrition; E87.1 Hypo-osmolality and hyponatremia; S42.031A Displaced fracture of lateral end of right clavicle, initial encounter for closed fracture; W18.30XA Fall on same level, unspecified, initial encounter; Y92.009 Unspecified place in unspecified non-institutional (private) residence as the place of occurrence of the external cause; S41.111A Laceration without foreign body of right upper arm, initial encounter; B96.20 Unspecified Escherichia coli [E. coli] as the cause of diseases classified elsewhere; D64.9 Anemia, unspecified; E11.42 Type 2 diabetes mellitus with diabetic polyneuropathy; Z68.20 Body mass index [BMI] 20.0-20.9, adult; E78.5 Hyperlipidemia, unspecified; G25.0 Essential tremor; I10 Essential (primary) hypertension; J44.9 Chronic obstructive pulmonary disease, unspecified; M06.9 Rheumatoid arthritis, unspecified; Z79.51 Long term (current) use of inhaled steroids; Z79.82 Long term (current) use of aspirin; Z79.84 Long term (current) use of oral hypoglycemic drugs; Z79.899 Other long term (current) drug therapy; Z82.61 Family history of arthritis; Z85.828 Personal history of other malignant neoplasm of skin; Z87.01 Personal history of pneumonia (recurrent); Z83.6 Family history of other diseases of the respiratory system; R01.1 Cardiac murmur, unspecified; Z87.891 Personal history of nicotine dependence; Z90.12 Acquired absence of left breast and nipple; Z90.710 Acquired absence of both cervix and uterus; Z89.422 Acquired absence of other left toe(s); Z89.421 Acquired absence of other right toe(s)
CPT/HCPCS: 36415; 51702; 70450; 71045; 72125; 73501; 73502; 80048; 81001; 83735; 85025; 85610; 85730; 86850; 86900; 86901; 86920; 87077; 87086; 87186; 90471; 90715; 93005; 94640; 96374; 96376; 99285

== ENCOUNTER → 2021-08-04 | Outpatient (CLI) | payer MEDICARE, BC ==
--- NOTE | 2021-08-04 15:09 | MM ---
Reason for exam: additional evaluation requested from prior study. Last mammogram was performed 2 years and 7 months ago. History: Patient is postmenopausal, has history of breast cancer at age 76, and history of other cancer. Family history of breast cancer in paternal cousin at age 50 and breast cancer in paternal grandmother at age 70. Malignant US breast needle core LT of the left breast, June 29, 2016. Mastectomy of the left breast, June 2016. Benign excisional biopsy of the left breast, April 21, 1999. Took estrogen for 15 years beginning at age 41. Physical Findings: Nurse did not find any significant physical abnormalities on exam. MG 3D Diag Mammo W/Cad RT CC and MLO view(s) were taken of the right breast. Prior study comparison: January 13, 2019, right breast MG 3d diag mammo w/cad RT. November 15, 2017, right breast MG 3d diag mammo w/cad RT. The breast tissue is heterogeneously dense. This may lower the sensitivity of mammography. Stable post left mastectomy. These results were verbally communicated with the patient and result sheet given to the patient on 08/04/21. ASSESSMENT: Benign, BI-RAD 2 RECOMMENDATION: Routine screening mammogram of the right breast in 1 year.
--- NOTE | 2021-08-04 15:38 | BD ---
EXAMINATION TYPE: Axial Bone Density DATE OF EXAM: 08/04/2021 COMPARISON: 01/13/2019 CLINICAL HISTORY: osteoporosis. Height: 67 IN Weight: 127 LBS FRAX RISK QUESTIONS: History of Fracture in Adulthood: RT KNEE AGE 71; RT FEMUR AGE 80 Secondary Osteoporosis: 4. Malnutrition: YES Rheumatoid Arthritis: YES RISK FACTORS HISTORY OF: Family History of Osteoporosis: YES MOTHER Active: MODERATE Diet low in dairy products/other sources of calcium: YES Postmenopausal woman: TOTAL HYST AGE 45 Take estrogen and/or progesterone medications: NOT NOW How lon YEARS Lost more than 2 inches in height since high school: YES 3" MEDICATIONS: Osteoporosis Medications: PROLIA Which medication: Prolia How Long: TOOK MAYBE 2 YEARS Additional Medications: PROLIA, VIT D, RAMIPRIL, LAMOTRIGINE, PRAVASTATIN, HCTZ, AMLODIPINE, METFORMI N, BYETTA,LAMOTRIGINE, Additional History: PT HAD BREAST CANCER EXAM MEASUREMENTS: Bone mineral densitometry was performed using the [employer] System. Bone mineral density as measured about the Lumbar spine is: ----- L1-L4(G/cm2): 0.971 T Score Values are as follows: ----- L2: -1.5 ----- L3: -1.7 ----- L4: -1.9 ----- L1-L4: -1.7 Bone mineral density has: Decreased -4.2% since study of: 01/13/2019 PT HAD RT HIP FX AND SURGERY AGE 80 Bone mineral density about the L hip (g/cm2): 0.847 T Score values are as follows: -----L Neck: -1.4 -----L Total: -1.6 Bone mineral density has: Decreased -0.4% since study of: 01/13/2019 IMPRESSION: Osteopenia. NOTE: T-SCORE=SD OF THE YOUNG ADULT MEAN.
== END | disposition home or self-care (01) ==
LOC: RADBDWWP 13:10
PROVIDERS: ATTEND Family Medicine
DX: M85.89 Other specified disorders of bone density and structure, multiple sites (principal); Z78.0 Asymptomatic menopausal state; R92.2 Inconclusive mammogram; Z85.3 Personal history of malignant neoplasm of breast; Z80.3 Family history of malignant neoplasm of breast; Z90.12 Acquired absence of left breast and nipple
CPT/HCPCS: 77080; 77065; G0279; 77061

== ENCOUNTER 2025-01-11 10:35 | Inpatient (IN) | payer MEDICARE, BC ==
--- NOTE | 2025-01-11 11:05 | ED ---
Extremity Problem HPI - General Chief complaint: Extremity Problem,Nontraumatic Stated complaint: Cellulitis R leg Time Seen by Provider: 01/11/25 10:44 Source: patient, EMS, RN notes reviewed Mode of arrival: EMS Limitations: no limitations - History of Present Illness Initial comments: This is a an 84-year-old female who presents to the emergency department for concerns of a right leg infection. States that she has been having pain and swelling to her right leg for the last 2 to 3 weeks. She has been taking Keflex for about 2 weeks at this point. States that the swelling has gone down, however the leg is still red and very painful. States that even light touch is very bothersome. Denies any fevers or chills. MD Complaint: extremity pain, extremity swelling - Related Data Home Medications Medication Instructions Recorded Confirmed Mometasone/Formoterol [Dulera 100 2 puff INHALATION RT-BID 06/11/14 01/11/25 Mcg-5 Mcg Inhaler] Pravastatin Sodium [Pravachol] 40 mg PO DAILY 06/11/14 01/11/25 Ramipril 10 mg PO DAILY 06/11/14 01/11/25 hydroCHLOROthiazide [Hydrodiuril] 25 mg PO DAILY 06/11/14 01/11/25 Aspirin EC [Ecotrin Low Dose] 81 mg PO DAILY 04/12/16 01/11/25 Ubidecarenone [Co Q-10] 200 mg PO DAILY 04/12/16 01/11/25 lamoTRIgine [LaMICtal Xr] 50 mg PO BID 06/22/20 01/11/25 metFORMIN HCL [Glucophage] 500 mg PO BID-W/MEALS 06/22/20 01/11/25 Albuterol Inhaler [Ventolin Hfa 2 puff INHALATION RT-QID PRN 01/11/25 01/11/25 Inhaler] Albuterol Nebulized [Ventolin 2.5 mg INHALATION RT-QID PRN 01/11/25 01/11/25 Nebulized] Azelastine HCl [Astelin Nasal 1 spray EA NOSTRIL DAILY 01/11/25 01/11/25 [place]] Cephalexin [Keflex] 500 mg PO Q6HR 01/11/25 01/11/25 Ergocalciferol (Vitamin D2) 1,250 mcg PO WE 01/11/25 01/11/25 [Drisdol (50,000 Iu)] Furosemide [Lasix] 20 mg PO DAILY 01/11/25 01/11/25 Lubiprostone [Amitiza] 24 mcg PO BID 01/11/25 01/11/25 Potassium Chloride ER [K-Dur 10] 10 meq PO DAILY 01/11/25 01/11/25 Previous Rx's Medication Instructions Recorded amLODIPine [Norvasc] 10 mg PO DAILY #20 tablet 09/23/19 Allergies Allergy/AdvReac Type Severity Reaction Status Date / Time No Known Allergies Allergy Verified 01/11/25 12:47 Review of Systems ROS Statement: Those systems with pertinent positive or pertinent negative responses have been documented in the HPI. ROS Other: All systems not noted in ROS Statement are negative. Past Medical History Past Medical History: Asthma, COPD, Diabetes Mellitus, Hyperlipidemia, Hypertension, Pneumonia, Rheumatoid Arthritis (RA) Additional Past Medical History / Comment(s): skin CA, "heart misses a beat", heart murmur, History of Any Multi-Drug Resistant Organisms: None Reported Past Surgical History: Heart Catheterization, Hysterectomy Additional Past Surgical History / Comment(s): cath in 2007, (heart cath x2), ear surgery, skin CA remove, L Breast mastectomy, Left foot 1.5 toe's amp, right foot 1 toe amp Past Anesthesia/Blood Transfusion Reactions: No Reported Reaction, Motion Sickness Past Psychological History: No Psychological Hx Reported Smoking Status: Former smoker Past Alcohol Use History: Occasional Past Drug Use History: None Reported - Past Family History Father Additional Family Medical History / Comment(s): states, "lung disease" Mother Additional Family Medical History / Comment(s): estreme "bone disease" General Exam Limitations: no limitations General appearance: alert, in no apparent distress Head exam: Present: atraumatic, normocephalic, normal inspection Respiratory exam: Present: normal lung sounds bilaterally. Absent: respiratory distress, wheezes, rales, rhonchi, stridor Cardiovascular Exam: Present: regular rate, normal rhythm Extremities exam: Present: other (Mild generalized erythema of the right tib- fib. Overlying tenderness. 2+ DP and PT pulses) Neurological exam: Present: alert, oriented X3, CN II-XII intact Psychiatric exam: Present: normal affect, normal mood Skin exam: Present: warm, dry Course Vital Signs 01/11/25 01/11/25 01/11/25 10:39 11:40 15:46 Temperature 97.6 F 98 F 97.9 F Pulse Rate 63 68 67 Respiratory 18 16 16 Rate Blood Pressure 139/65 111/69 132/67 O2 Sat by Pulse 95 95 96 Oximetry Medical Decision Making - Medical Decision Making This is an 84-year-old female who presents to the emergency department for right leg pain. Was pt. sent in by a medical professional or institution? @ -No Did you speak to anyone other than the patient for history? @ -No Did you review nursing and triage notes? @ -Yes, and I agree, it is accurate with regards to the patient's symptoms. Were old charts reviewed? @ -No Differential Diagnosis? @ -Differential Musculoskeletal Muscular strain, contusion, ligament sprain, fracture, arthritis, septic arthritis, bursitis, cellulitis, muscle spasm, nerve compression, DVT, arterial occlusion, herpes zoster, electrolyte abnormality, tumor.... This is not meant to be in all inclusive list EKG interpreted by me (3pts min.)? @ -Not obtained X-rays interpreted by me (1pt min.)? @ -Not obtained CT interpreted by me (1pt min.)? @ -Not obtained U/S interpreted by me (1pt. min.)? @ -Duplex ultrasound of the right lower extremity obtained. My interpretation identifies no evidence of a DVT. What testing was considered but not performed? (CT, X-rays, U/S, labs)? Why? @ -None What meds were considered but not given? Why? @ -None Did you discuss the management of the patient with other professionals? @ -Yes, Dr. Hampton, who accepts the patient for admission. Did you reconcile home meds? @ -Yes Was smoking cessation discussed for >3mins.? @ -No Was critical care preformed (if so, how long)? @ -No Were there social determinants of health that impacted care today? How? (Homelessness, low income, unemployed, alcoholism, drug addiction, transportation, low edu. Level, literacy, decrease access to med. care, usp, rehab)? @ -No Was there de-escalation of care discussed even if they declined? (Discuss DNR or withdrawal of care, Hospice)? @ -No What co-morbidities impacted this encounter? (DM, HTN, Smoking, COPD, CAD, Cancer, CVA, Hep., AIDS, mental health diagnosis, sleep apnea, morbid obesity)? @ -DM, rheumatoid arthritis, HLD, HTN Was patient admitted / discharged? @ -Admitted. Lab work demonstrates a mildly elevated lactic acid of 2.2 and is otherwise unremarkable. Duplex ultrasound of the right lower extremity obtained revealing no evidence of a DVT. Patient continued to have quite a bit of pain in the right leg and given that she was already on antibiotics without any improvement, she was admitted to medicine for the right lower extremity cellulitis and failure of outpatient management. Blood culture obtained. She was started on vancomycin and cefepime. Consult placed for infectious disease. Case discussed with ED attending Dr. Pablo. Drug Therapy requiring intensive monitoring for toxicity (Heparin, Nitro, Insulin, Cardizem)? @ -None Were any procedures done? @ -None Diagnosis/symptom? @ -Right lower extremity cellulitis, failure of outpatient management Acute, or Chronic, or Acute on Chronic? @ -Acute Uncomplicated (without systemic symptoms) or Complicated (systemic symptoms)? @ -Uncomplicated Side effects of treatment? @ -None Exacerbation, Progression, or Severe Exacerbation] @ -Not applicable Poses a threat to life or bodily function? @ -Yes, can lead to life-threatening infection - Lab Data Result diagrams: 01/11/25 11:06 01/11/25 11:06 Lab Results 01/11/25 01/11/25 01/11/25 Range/Units 11:06 11:06 11:06 WBC 3.86 L (4.50-10.00) 10*3/uL RBC 3.81 L (4.10-5.20) 10*6/uL Hgb 11.4 L (12.0-15.0) g/dL Hct 33.5 L (37.2-46.3) % MCV 87.9 (80.0-97.0) fL MCH 29.9 (27.0-32.0) pg MCHC 34.0 (32.0-37.0) g/dL Plt Count 227 (140-440) 10*3/uL MPV 9.1 L (9.5-12.2) fL Immature Gran % (Auto) 1.0 % Neutrophils % 59.8 % Lymphocytes % 27.2 % Monocytes % 7.8 % Eosinophils % 3.4 % Basophils % 0.8 % Immature Gran # 0.04 (0.00-0.04) 10*3/uL Neutrophils # 2.31 (1.80-7.70) 10*3/uL Lymphocytes # 1.05 (0.90-5.00) 10*3/uL Monocytes # 0.30 (0.20-1.00) 10*3/uL Eosinophils # 0.13 (0.04-0.35) 10*3/uL Basophils # 0.03 (0.00-0.10) 10*3/uL Sodium 136 L (137-145) mmol/L Potassium 4.7 (3.5-5.1) mmol/L Chloride 101 (98-107) mmol/L Carbon Dioxide 25 (22-30) mmol/L Anion Gap 10 mmol/L BUN 34 H (7-17) mg/dL Creatinine 0.69 (0.52-1.04) mg/dL Est GFR (CKD-EPI)AfAm >90 (>60 ml/min/1.73 sqM) Est GFR (CKD-EPI)NonAf 79 (>60 ml/min/1.73 sqM) Glucose 173 H (74-99) mg/dL Lactic Ac Sepsis Rflx Plasma Lactic Acid Jordy 2.2 H* (0.7-2.0) mmol/L Calcium 10.8 H (8.4-10.2) mg/dL Total Bilirubin 1.1 (0.2-1.3) mg/dL AST 28 (14-36) U/L ALT 16 (4-34) U/L Alkaline Phosphatase 63 (38-126) U/L C-Reactive Protein <0.5 (<1.0) mg/dL Total Protein 6.7 (6.3-8.2) g/dL Albumin 4.1 (3.5-5.0) g/dL 01/11/25 Range/Units 11:40 WBC (4.50-10.00) 10*3/uL RBC (4.10-5.20) 10*6/uL Hgb (12.0-15.0) g/dL Hct (37.2-46.3) % MCV (80.0-97.0) fL MCH (27.0-32.0) pg MCHC (32.0-37.0) g/dL Plt Count (140-440) 10*3/uL MPV (9.5-12.2) fL Immature Gran % (Auto) % Neutrophils % % Lymphocytes % % Monocytes % % Eosinophils % % Basophils % % Immature Gran # (0.00-0.04) 10*3/uL Neutrophils # (1.80-7.70) 10*3/uL Lymphocytes # (0.90-5.00) 10*3/uL Monocytes # (0.20-1.00) 10*3/uL Eosinophils # (0.04-0.35) 10*3/uL Basophils # (0.00-0.10) 10*3/uL Sodium (137-145) mmol/L Potassium (3.5-5.1) mmol/L Chloride (98-107) mmol/L Carbon Dioxide (22-30) mmol/L Anion Gap mmol/L BUN (7-17) mg/dL Creatinine (0.52-1.04) mg/dL Est GFR (CKD-EPI)AfAm (>60 ml/min/1.73 sqM) Est GFR (CKD-EPI)NonAf (>60 ml/min/1.73 sqM) Glucose (74-99) mg/dL Lactic Ac Sepsis Rflx Y Plasma Lactic Acid Jordy (0.7-2.0) mmol/L Calcium (8.4-10.2) mg/dL Total Bilirubin (0.2-1.3) mg/dL AST (14-36) U/L ALT (4-34) U/L Alkaline Phosphatase (38-126) U/L C-Reactive Protein (<1.0) mg/dL Total Protein (6.3-8.2) g/dL Albumin (3.5-5.0) g/dL - Radiology Data Radiology results: report reviewed, image reviewed Disposition Clinical Impression: Cellulitis of right lower extremity, Failure of outpatient treatment Disposition: ADMITTED IP TO THIS HOSP
[2025-01-11 11:17] LABS: Basophils # (A) 0.03 10*3/uL (0.00-0.10); Basophils % (A) 0.8 %; Eosinophils # (A) 0.13 10*3/uL (0.04-0.35); Eosinophils % (A) 3.4 %; HCT 33.5 % (37.2-46.3); HGB 11.4 g/dL (12.0-15.0); Lymphocytes # (A) 1.05 10*3/uL (0.90-5.00); Lymphocytes % (A) 27.2 %; MCH 29.9 pg (27.0-32.0); MCV 87.9 fL (80.0-97.0); Mean Platelet Volume 9.1 fL (9.5-12.2); Monocytes % (A) 7.8 %; Neutrophils # (A) 2.31 10*3/uL (1.80-7.70); Neutrophils % (A) 59.8 %; Platelet Count 227 10*3/uL (140-440); RBC 3.81 10*6/uL (4.10-5.20); RDW 13.1 % (11.5-14.5); WBC 3.86 10*3/uL (4.50-10.00)
[2025-01-11 11:31] LABS: ALT 16 U/L (4-34); African American GFR (CKD) >90 (>60 ml/min/1.73 sqM); Anion Gap 10 mmol/L; Blood Urea Nitrogen 34 mg/dL (7-17); C Reactive Protein <0.5 mg/dL (<1.0); Calcium 10.8 mg/dL (8.4-10.2); Carbon Dioxide 25 mmol/L (22-30); Chloride 101 mmol/L (98-107); Glucose 173 mg/dL (74-99); Non-African American GFR(CKD) 79 (>60 ml/min/1.73 sqM); Sodium 136 mmol/L (137-145); Total Bilirubin 1.1 mg/dL (0.2-1.3)
[2025-01-11] MEDS: MORPHINE SULFATE 4 MG/ML SYRINGE IVP STA (11:35)
--- NOTE | 2025-01-11 11:36 | US ---
EXAMINATION TYPE: US venous doppler duplex LE RT DATE OF EXAM: 01/11/2025 10:59 AM COMPARISON: NONE CLINICAL INDICATION: Female, 84 years old with history of Pain; Right leg redness and pain, Pain TECHNIQUE: The lower extremity deep venous system is examined utilizing real time linear array sonog hemal with graded compression, color doppler sonography, and spectral doppler. SIDE PERFORMED: Right FINDINGS: VESSELS IMAGED: Common Femoral Vein Deep Femoral Vein Greater Saphenous Vein * Femoral Vein Popliteal Vein Small Saphenous Vein * Proximal Calf Veins (* superficial vessels) Right Leg: Negative for DVT, Color Doppler imaging shows patency of the vessels. Spectral waveforms are within normal limits. IMPRESSION: No ultrasound evidence for deep venous thrombosis. [facility], , 01/11/2025 11:34 AM
[2025-01-11 11:38] LABS: AST 28 U/L (14-36); Albumin 4.1 g/dL (3.5-5.0); Alkaline Phosphatase 63 U/L (38-126); Potassium 4.7 mmol/L (3.5-5.1); Total Protein 6.7 g/dL (6.3-8.2)
[2025-01-11] MEDS: SODIUM CHLORIDE 0.9% 500 ML 500 ML IV ONE (12:19)
[2025-01-11] MEDS ORDERED: VANCOMYCIN IV PER PHARMACY 1 EACH MISC MISCELLANE PRN (12:51)
[2025-01-11] MEDS ORDERED: ACETAMINOPHEN TAB 325 MG TAB PO PRN (12:57)
[2025-01-11] MEDS ORDERED: NALOXONE 0.4 MG/ML 1 ML VIAL IV PRN (12:57)
[2025-01-11] MEDS ORDERED: ONDANSETRON 4 MG/2 ML VIAL IVP PRN (12:57)
[2025-01-11] MEDS ORDERED: NON FORMULARY DRUG (Albuterol Inhaler 90 MCG Puff) INHALATION PRN (12:58)
[2025-01-11] MEDS ORDERED: ALBUTEROL NEBULIZED 2.5 MG/3 ML INHALATION PRN (12:58)
[2025-01-11] MEDS: CEFEPIME 1 GM in SODIUM CHLORIDE 0.9% 50 ML IVPB ONE (13:34)
[2025-01-11] MEDS: VANCOMYCIN 1,000 MG in SODIUM CHLORIDE 0.9% 250 ML IVPB ONE (14:16)
[2025-01-11] MEDS: metFORMIN 500 MG TAB PO SCH (17:28)
[2025-01-11] MEDS ORDERED: DEXTROSE 50% SYRINGE 50 ML IVP PRN ×2 (18:38)
--- NOTE | 2025-01-11 18:51 | P.HPIM ---
History of Present Illness H&P Date: 01/11/25 Chief Complaint: Right leg infection Patient is seen 84-year-old female with known history of diabetes type 2 [id number], asthma/COPD, hypertension, hyperlipidemia, rheumatoid arthritis and prior history of smoking presents here with the complaints of right leg swelling and redness. Patient has been having right leg pain and swelling worsening for the past 2 weeks. She was seen by her primary care physician and was prescribed Keflex which she took about 4 days. Patient states that her swelling is getting but still having reddened and painful. Patient sta kevin that pain even with light touch. Denies any fever or chills. No open wounds purulent discharge. No complaints of chest pain or shortness of breath. No cough is progressing. No nausea vomiting abdominal diarrhea. Patient presented to ER for further evaluation. When asked the venous duplex right lower extremity is negative for DVT. Laboratory data showed WBC 3.8 hemoglobin 11.4 and platelets 227, sodium 136 potassium 4.7 creatinine 01 bicarb 25 BUN 34 and creatinine 0.69 and blood sugar 173, lactic acid 2.2 and 2 calcium 10 Liver enzymes are not elevated. Review of Systems Constitutional: Patient denies any fever or chills . No generalized weakness or weight loss. Abdomen: Patient denied nausea vomiting and diarrhea and abdominal pain. Cardiovascular: Patient denies any chest pain or short of breath no palpitations. Respiratory: patient denied any cough or sputum production. No shortness of breath Neurologic: Patient denied any numbness or tingling. no headache. Musculoskeletal: Patient denies any complaints of joint swelling or deformity. Right lower extremity swelling and redness and pain. Skin: Negative Psychiatric: Negative Endocrine: No heat or cold intolerance. No recent weight gain. Genitourinary: No dysuria or hematuria. All other 14 point ROS negative except the above Past Medical History Past Medical History: Asthma, COPD, Diabetes Mellitus, Hyperlipidemia, Hypertension, Pneumonia, Rheumatoid Arthritis (RA) Additional Past Medical History / Comment(s): skin CA, "heart misses a beat", heart murmur, History of Any Multi-Drug Resistant Organisms: None Reported Past Surgical History: Heart Catheterization, Hysterectomy Additional Past Surgical History / Comment(s): cath in 2008, (heart cath x2), ear surgery, skin CA remove, L Breast mastectomy, Left foot 1.5 toe's amp, right foot 1 toe amp Past Anesthesia/Blood Transfusion Reactions: No Reported Reaction, Motion Sickness Past Psychological History: No Psychological Hx Reported Smoking Status: Former smoker Past Alcohol Use History: Occasional Past Drug Use History: None Reported - Past Family History Father Additional Family Medical History / Comment(s): states, "lung disease" Mother Additional Family Medical History / Comment(s): estreme "bone disease" Medications and Allergies Home Medications Medication Instructions Recorded Confirmed Type Mometasone/Formoterol [Dulera 100 2 puff INHALATION RT-BID 06/11/14 01/11/25 History Mcg-5 Mcg Inhaler] Pravastatin Sodium [Pravachol] 40 mg PO DAILY 06/11/14 01/11/25 History Ramipril 10 mg PO DAILY 06/11/14 01/11/25 History hydroCHLOROthiazide [Hydrodiuril] 25 mg PO DAILY 06/11/14 01/11/25 History Aspirin EC [Ecotrin Low Dose] 81 mg PO DAILY 04/12/16 01/11/25 History Ubidecarenone [Co Q-10] 200 mg PO DAILY 04/12/16 01/11/25 History amLODIPine [Norvasc] 10 mg PO DAILY #20 tablet 09/23/19 01/11/25 Rx lamoTRIgine [LaMICtal Xr] 50 mg PO BID 06/22/20 01/11/25 History metFORMIN HCL [Glucophage] 500 mg PO BID-W/MEALS 06/22/20 01/11/25 History Albuterol Inhaler [Ventolin Hfa 2 puff INHALATION RT-QID PRN 01/11/25 01/11/25 History Inhaler] Albuterol Nebulized [Ventolin 2.5 mg INHALATION RT-QID PRN 01/11/25 01/11/25 History Nebulized] Azelastine HCl [Astelin Nasal 1 spray EA NOSTRIL DAILY 01/11/25 01/11/25 History [place]] Cephalexin [Keflex] 500 mg PO Q6HR 01/11/25 01/11/25 History Ergocalciferol (Vitamin D2) 1,250 mcg PO WE 01/11/25 01/11/25 History [Drisdol (50,000 Iu)] Furosemide [Lasix] 20 mg PO DAILY 01/11/25 01/11/25 History Lubiprostone [Amitiza] 24 mcg PO BID 01/11/25 01/11/25 History Potassium Chloride ER [K-Dur 10] 10 meq PO DAILY 01/11/25 01/11/25 History Allergies Allergy/AdvReac Type Severity Reaction Status Date / Time No Known Allergies Allergy Verified 01/11/25 12:47 Physical Exam Vitals: Vital Signs Temp Pulse Resp BP Pulse Ox 01/11/25 11:40 98 F 68 16 111/69 95 01/11/25 10:39 97.6 F 63 18 139/65 95 Intake and Output 01/10/25 01/11/25 01/11/25 22:59 06:59 14:59 Other: Weight 53.977 kg PHYSICAL EXAMINATION: Patient is lying in the bed comfortably, no acute distress, awake alert and oriented.. HEENT: Normocephalic. Neck is supple. Pupils reactive. Nostrils clear. Oral ca vity is moist. Neck reveals no JVD, carotid bruits, or thyromegaly. CHEST EXAMINATION: Trachea is central. Symmetrical expansion. Lung young clear to auscultation and percussion. CARDIAC: Normal S1, S2 with no gallops. Systolic murmur ABDOMEN: Soft. Bowel sounds normal. No organomegaly. No abdominal bruits. Extremities: Right lower extremity redness extending up to knee, swelling and tender to palpation. No discharge or open wound.. No clubbing or cyanosis Neurologically awake, alert, oriented x3 with well-coordinated movements. No focal deficits noted Skin: No rash or skin lesions. Psychiatric: Coperative. Nonsuicidal Musculoskeletal: No joint swelling or deformity. Normal range of motion. Results CBC & Chem 7: 01/11/25 11:06 01/11/25 11:06 Labs: Abnormal Lab Results - Last 24 Hours (Table) 01/11/25 01/11/25 01/11/25 Range/Units 11:06 11:06 11:06 WBC 3.86 L (4.50-10.00) 10*3/uL RBC 3.81 L (4.10-5.20) 10*6/uL Hgb 11.4 L (12.0-15.0) g/dL Hct 33.5 L (37.2-46.3) % MPV 9.1 L (9.5-12.2) fL Sodium 136 L (137-145) mmol/L BUN 34 H (7-17) mg/dL Glucose 173 H (74-99) mg/dL Plasma Lactic Acid Jordy 2.2 H* (0.7-2.0) mmol/L Calcium 10.8 H (8.4-10.2) mg/dL Thrombosis Risk Factor Assmnt - DVT/VTE Prophylaxis DVT/VTE Prophylaxis: Pharmacologic Prophylaxis ordered Assessment and Plan Assessment: Right lower extremity cellulitis. Failed outpatient antibiotic therapy Diabetes type 2 [id number], hyperglycemia uncontrolled. Hypertension Hyperlipidemia COPD/asthma Rheumatoid arthritis Prior history of smoking GI and DVT prophylaxis with PPI and heparin subcu Plan: Patient was given IV fluid bolus in the ER. Continue with antibiotics in the form of vancomycin and cefepime. Follow-up blood cultures. ID service was consulted. Lower extremity duplex scan is negative for DVT. Continue insulin sliding scale for better blood sugar control. Ordered A1c. Metformin and hydrochlorothiazide will be on hold. Discussed with her son at bedside. Follow-up closely. Time with Patient: Greater than 30
[2025-01-11 19:53] LABS: Glucose,Whole Blood 188 mg/dL (70-110)
[2025-01-11] MEDS: SYMBICORT 80-4.5 MCG INHALER INHALATION SCH (20:04)
[2025-01-11] MEDS: HYDROcodone/APAP 5-325MG 1 EACH TAB PO PRN (20:50)
[2025-01-11] MEDS: INSULIN LISPRO (HumaLOG) 100 UNIT/ML 10 mL VL SQ SCH (20:51)
[2025-01-11] MEDS: HEPARIN SODIUM,PORCINE 5,000 UNIT/ML 1 ML VIAL SQ SCH (20:51)
[2025-01-11] MEDS: NON FORMULARY DRUG (Lubiprostone [Amitiza] 24 MCG Capsule) PO SCH (20:52)
--- NOTE | 2025-01-11 21:50 | P.CONS ---
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 Denies high-grade fever or any chills on presentation to the hospital the patient was afebrile no fever have been called subsequently patient was not tachycardic hypotensive or hypoxic patient did have a lactic acid of 2.3 white count of 3.86 creatinine 0.6 Liver enzymes are normal patient did have a venous Doppler of the right leg that was negative for DVT patient was started on vancomycin and cefepime admitted to hospital infectious disease was consulted for further management of antibiotic therapy Review of Systems Positive point and negatives has been mentioned in the HPI, complete review of systems was performed and all other systems are negative Past Medical History Past Medical History: Asthma, COPD, Diabetes Mellitus, Hyperlipidemia, Hypertension, Pneumonia, Rheumatoid Arthritis (RA) Additional Past Medical History / Comment(s): skin CA, "heart misses a beat", heart murmur, History of Any Multi-Drug Resistant Organisms: None Reported Past Surgical History: Heart Catheterization, Hysterectomy Additional Past Surgical History / Comment(s): cath in 2007, (heart cath x2), ear surgery, skin CA remove, L Breast mastectomy, Left foot 1.5 toe's amp, right foot 1 toe amp Past Anesthesia/Blood Transfusion Reactions: No Reported Reaction, Motion Sickness Past Psychological History: No Psychological Hx Reported Smoking Status: Former smoker Past Alcohol Use History: Occasional Past Drug Use History: None Reported - Past Family History Father Additional Family Medical History / Comment(s): states, "lung disease" Mother Additional Family Medical History / Comment(s): estreme "bone disease" Medications and Allergies Home Medications Medication Instructions Recorded Confirmed Type Mometasone/Formoterol [Dulera 100 2 puff INHALATION RT-BID 06/11/14 01/11/25 Hi story Mcg-5 Mcg Inhaler] Pravastatin Sodium [Pravachol] 40 mg PO DAILY 06/11/14 01/11/25 History Ramipril 10 mg PO DAILY 06/11/14 01/11/25 History hydroCHLOROthiazide [Hydrodiuril] 25 mg PO DAILY 06/11/14 01/11/25 History Aspirin EC [Ecotrin Low Dose] 81 mg PO DAILY 04/12/16 01/11/25 History Ubidecarenone [Co Q-10] 200 mg PO DAILY 04/12/16 01/11/25 History amLODIPine [Norvasc] 10 mg PO DAILY #20 tablet 09/23/19 01/11/25 Rx lamoTRIgine [LaMICtal Xr] 50 mg PO BID 06/22/20 01/11/25 History metFORMIN HCL [Glucophage] 500 mg PO BID-W/MEALS 06/22/20 01/11/25 History Albuterol Inhaler [Ventolin Hfa 2 puff INHALATION RT-QID PRN 01/11/25 01/11/25 History Inhaler] Albuterol Nebulized [Ventolin 2.5 mg INHALATION RT-QID PRN 01/11/25 01/11/25 History Nebulized] Azelastine HCl [Astelin Nasal 1 spray EA NOSTRIL DAILY 01/11/25 01/11/25 History [place]] Cephalexin [Keflex] 500 mg PO Q6HR 01/11/25 01/11/25 History Ergocalciferol (Vitamin D2) 1,250 mcg PO WE 01/11/25 01/11/25 History [Drisdol (50,000 Iu)] Furosemide [Lasix] 20 mg PO DAILY 01/11/25 01/11/25 History Lubiprostone [Amitiza] 24 mcg PO BID 01/11/25 01/11/25 History Potassium Chloride ER [K-Dur 10] 10 meq PO DAILY 01/11/25 01/11/25 History Allergies Allergy/AdvReac Type Severity Reaction Status Date / Time No Known Allergies Allergy Verified 01/11/25 12:47 Physical Exam Vitals: Vital Signs Temp Pulse Resp BP Pulse Ox 01/11/25 11:40 98 F 68 16 111/69 95 04/21/25 10:39 97.6 F 63 18 139/65 95 Intake and Output 01/10/25 01/11/25 01/11/25 22:59 06:59 14:59 Other: Weight 53.977 kg GENERAL DESCRIPTION: Elderly female lying in bed, no distress. No tachypnea or accessory muscle of respiration use. HEENT: Shows Pallor , no scleral icterus. Oral mucous membrane is dry. NECK: Trachea central, no thyromegaly. LUNGS: Unlabored breathing. Clear to auscultation anteriorly. No wheeze or crackle. HEART: S1, S2, regular rate and rhythm. No loud murmur ABDOMEN: Soft, no tenderness , guarding or rigidity, no organomegaly EXTREMITIES: Right lower extremity did have a minimal swelling redness and tenderness to touch evidence of athlete's foot SKIN: No rash, no masses palpable. NEUROLOGICAL: The patient is awake, alert, oriented x3, mood and affect normal. Results CBC & Chem 7: 01/12/25 05:36 01/12/25 05:36 Labs: Abnormal Lab Results - Last 24 Hours (Table) 01/11/25 01/11/25 01/11/25 Range/Units 11:06 11:06 11:06 WBC 3.86 L (4.50-10.00) 10*3/uL RBC 3.81 L (4.10-5.20) 10*6/uL Hgb 11.4 L (12.0-15.0) g/dL Hct 33.5 L (37.2-46.3) % MPV 9.1 L (9.5-12.2) fL Sodium 136 L (137-145) mmol/L BUN 34 H (7-17) mg/dL Glucose 173 H (74-99) mg/dL Plasma Lactic Acid Jordy 2.2 H* (0.7-2.0) mmol/L Calcium 10.8 H (8.4-10.2) mg/dL Assessment and Plan (1) Athletes foot Current Visit: Yes Status: Acute Code(s): B35.3 - TINEA PEDIS SNOMED Code(s): 0483466 (2) Cellulitis of right lower extremity Current Visit: Yes Status: Acute Code(s): L03.115 - CELLULITIS OF RIGHT LO WER LIMB SNOMED Code(s): 64406253562622304 (3) Failure of outpatient treatment Current Visit: Yes Status: Acute Code(s): Z78.9 - OTHER SPECIFIED HEALTH STATUS SNOMED Code(s): 382359729 Plan: 1patient presented to hospital increasing swelling redness of the right lower extremity and this patient has been diagnosed with cellulitis failing outpatient oral Keflex therapy patient did have evidence of athlete's foot more likely predisposing factor for the cellulitis, this has been explained to the patient as prompt treatment of athlete's foot can prevent recurrent cellulitis 2-we apply nystatin cream between the toes twice a day 3-continue with the cefepime and vancomycin pending culture finalization and see clinical response Multiple question concern answered We will follow on clinical condition and cultures to further adjust medication if needed Thank you for this consultation we will follow the patient along with you Dictation was produced using [employer] dictation software. please excuse any grammatical, word or spelling errors. From Time with Patient: Greater than 30
[2025-01-11] MEDS: lamoTRIgine 25 MG TAB PO SCH (22:27)
[2025-01-11] MEDS: CEFEPIME 1 GM in SODIUM CHLORIDE 0.9% 50 ML IVPB SCH (22:27)
[2025-01-12] MEDS: MORPHINE SULFATE 4 MG/ML SYRINGE IV PRN (00:08)
[2025-01-12] MEDS: NYSTATIN 100,000UNIT/GM CREAM 30 GM TUBE TOPICAL SCH (00:08)
[2025-01-12 06:19] LABS: Glucose,Whole Blood 175 mg/dL (70-110)
[2025-01-12] MEDS: VANCOMYCIN 1,000 MG in SODIUM CHLORIDE 0.9% 250 ML IVPB SCH (06:21)
[2025-01-12 06:27] LABS: African American GFR (CKD) >90 (>60 ml/min/1.73 sqM); Anion Gap 7 mmol/L; Blood Urea Nitrogen 28 mg/dL (7-17); Carbon Dioxide 24 mmol/L (22-30); Chloride 104 mmol/L (98-107); Glucose 151 mg/dL (74-99); Non-African American GFR(CKD) 81 (>60 ml/min/1.73 sqM); Potassium 4.1 mmol/L (3.5-5.1); Sodium 135 mmol/L (137-145)
[2025-01-12 08:17] LABS: Glucose,Whole Blood 144 mg/dL (70-110)
[2025-01-12 08:40] LABS: Basophils # (A) 0.05 X 10*3/uL (0.00-0.10); Basophils % (A) 1.2 %; Eosinophils # (A) 0.19 X 10*3/uL (0.04-0.35); Eosinophils % (A) 4.6 %; HCT 31.8 % (37.2-46.3); HGB 10.4 g/dL (12.0-15.0); Lymphocytes # (A) 1.47 X 10*3/uL (0.90-5.00); Lymphocytes % (A) 35.5 %; MCH 29.4 pg (27.0-32.0); MCHC 32.7 g/dL (32.0-37.0); MCV 89.8 FL (80.0-97.0); Mean Platelet Volume 10.1 FL (9.5-12.2); Monocytes # (A) 0.34 X 10*3/uL (0.20-1.00); Monocytes % (A) 8.2 %; NRBC Per 100 WBC 0 X 10*3/uL (0.00-0.01); Neutrophils # (A) 2.05 X 10*3/uL (1.80-7.70); Neutrophils % (A) 49.5 %; Platelet Count 228 X 10*3/uL (140-440); RBC 3.54 X 10*6/uL (4.10-5.20); WBC 4.14 X 10*3/uL (4.50-10.00)
[2025-01-12] MEDS: FUROSEMIDE 20 MG TAB PO SCH (08:51)
[2025-01-12] MEDS: ASPIRIN 81 MG PO SCH (08:51)
[2025-01-12] MEDS: PANTOPRAZOLE 40 MG/10 ML VIAL IV SCH (08:51)
[2025-01-12] MEDS: amLODIPine 10 MG TAB PO SCH (08:51)
[2025-01-12] MEDS: lisinopriL 20 MG TAB PO SCH (08:52)
[2025-01-12] MEDS: PRAVASTATIN SODIUM 40 MG TAB PO SCH (08:55)
[2025-01-12] MEDS ORDERED: hydroCHLOROthiazide 25 MG TAB PO SCH (09:00)
[2025-01-12] MEDS ORDERED: NON FORMULARY DRUG (Ubidecarenone [Co Q-10] 100 MG Capsule) PO SCH (09:00)
[2025-01-12] MEDS: POTASSIUM CHLORIDE ER 10 MEQ TAB.ER.PRT PO SCH (09:10)
[2025-01-12] MEDS: AZELASTINE 137MCG/SPRAY EA NOSTRIL SCH (09:16)
[2025-01-12 10:35] VITALS: BMI 18.1
[2025-01-12 12:29] LABS: Glucose,Whole Blood 221 mg/dL (70-110)
--- NOTE | 2025-01-12 15:06 | P.PN ---
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 On today's evaluation that is 01/11/2025, patient has been afebrile, patient is breathing comfortably and is currently on room air, patient denies having any chest pain and cough, patient denies nausea vomiting or diarrhea and no abdominal pain still complaining of pain to the right lower extremity. Patient white count is 4.14, creatinine 0.65 blood cultures are pending Objective - Vital Signs Vital signs: Vital Signs Temp 97.6 F 01/12/25 07:00 Pulse 45 L 01/12/25 07:00 Resp 15 01/12/25 07:00 BP 125/55 01/12/25 07:00 Pulse Ox 100 01/12/25 07:00 FiO2 Intake & Output 01/11/25 01/12/25 01/12/25 18:59 06:59 18:59 Intake Total 540 Balance 540 Weight 53.977 kg 53.977 kg Intake: Oral 540 Other: Voiding Method Toilet Toilet # Voids 2 - Exam GENERAL DESCRIPTION: An elderly female lying in bed in no distress RESPIRATORY SYSTEM: Unlabored breathing , decreased breath sounds at bases HEART: S1 S2 regular rate and rhythm , ABDOMEN: Soft , no tenderness EXTREMITIES: Right extremity with minimal redness and tenderness - Labs CBC & Chem 7: 01/12/25 05:36 01/12/25 05:36 Labs: Abnormal Lab Results - Last 24 Hours (Table) 01/11/25 01/11/25 01/12/25 Range/Units 13:57 19:51 05:36 WBC (4.50-10.00) X 10*3/uL RBC (4.10-5.20) X 10*6/uL Hgb (12.0-15.0) g/dL Hct (37.2-46.3) % Sodium (137-145) mmol/L BUN (7-17) mg/dL Glucose (74-99) mg/dL POC Glucose (mg/dL) 188 H (70-110) mg/dL Hemoglobin A1c 7.9 H (<=6.0) % Plasma Lactic Acid Jordy 2.2 H* (0.7-2.0) mmol/L 01/12/25 01/12/25 01/12/25 Range/Units 05:36 05:36 06:18 WBC 4.14 L (4.50-10.00) X 10*3/uL RBC 3.54 L (4.10-5.20) X 10*6/uL Hgb 10.4 L (12.0-15.0) g/dL Hct 31.8 L (37.2-46.3) % Sodium 135 L (137-145) mmol/L BUN 28 H (7-17) mg/dL Glucose 151 H (74-99) mg/dL POC Glucose (mg/dL) 175 H (70-110) mg/dL Hemoglobin A1c (<=6.0) % Plasma Lactic Acid Jordy (0.7-2.0) mmol/L 01/12/25 Range/Units 08:15 WBC (4.50-10.00) X 10*3/uL RBC (4.10-5.20) X 10*6/uL Hgb (12.0-15.0) g/dL Hct (37.2-46.3) % Sodium (137-145) mmol/L BUN (7-17) mg/dL Glucose (74-99) mg/dL POC Glucose (mg/dL) 144 H (70-110) mg/dL Hemoglobin A1c (<=6.0) % Plasma Lactic Acid Jordy (0.7-2.0) mmol/L Assessment and Plan (1) Athletes foot Current Visit: Yes Status: Acute Code(s): B35.3 - TINEA PEDIS SNOMED Code(s): 6370477 (2) Cellulitis of right lower extremity Current Visit: Yes Status: Acute Code(s): L03.115 - CELLULITIS OF RIGHT LOWER LIMB SNOMED Code(s): 62128783279974159 (3) Failure of outpatient treatment Current Visit: Yes Status: Acute Code(s): Z78.9 - OTHER SPECIFIED HEALTH STATUS SNOMED Code(s): 031859596 Plan: 1patient presented to hospital increasing swelling redness of the right lower extremity and this patient has been diagnosed with cellulitis failing outpatient oral Keflex therapy patient did have evidence of athlete's foot more likely predisposing factor for the cellulitis, this has been explained to the patient as prompt treatment of athlete's foot can prevent recurrent cellulitis 2-patient will be treated nystatin cream between the toes twice a day 3-patient currently on cefepime and vancomycin pending culture finalization and will Efra wrap to the right leg at to cut down some of the swelling Family at the bedside multiple question concern answered Dictation was produced using [employer] dictation software. please excuse any grammatical, word or spelling errors. Time with Patient: Less than 30
[2025-01-12 17:19] LABS: Glucose,Whole Blood 291 mg/dL (70-110)
[2025-01-12 21:24] LABS: Glucose,Whole Blood 107 mg/dL (70-110)
--- NOTE | 2025-01-12 23:44 | P.PN ---
Subjective Progress Note Date: 01/12/25 Patient is seen 84-year-old female with known history of diabetes type 2 isj-pqjblax-mhoevsuwj, asthma/COPD, hypertension, hyperlipidemia, rheumatoid arthritis and prior history of smoking presents here with the complaints of right leg swelling and redness. Patient has been having right leg pain and swel ling worsening for the past 2 weeks. She was seen by her primary care physician and was prescribed Keflex which she took about 4 days. Patient states that her swelling is getting but still having reddened and painful. Patient states that pain even with light touch. Denies any fever or chills. No open wounds purulent discharge. No complaints of chest pain or shortness of breath. No cough is progressing. No nausea vomiting abdominal diarrhea. Patient presented to ER for further evaluation. When asked the venous duplex right lower extremity is negative for DVT. Laboratory data showed WBC 3.8 hemoglobin 11.4 and platelets 227, sodium 136 potassium 4.7 creatinine 01 bicarb 25 BUN 34 and creatinine 0.69 and blood sugar 173, lactic acid 2.2 and 2 calcium 10 Liver enzymes are not elevated. 01/12/2025 Patient is lying in the bed. Awake alert and oriented x 3. Complains of right lower extremity pain. Patient was given a dose of IV morphine. Redness is improving. Still having tenderness. Continued on vancomycin and cefepime. ID is on board. Lab data showed WBC 4.1 hemoglobin 10.4 and platelets 228 sodium 135 potassium 4.1 chloride 104 bicarb is 24 BUN 28 and creatinine 0.65 blood sugar 151 and calcium 10.0 A1c 10.0. ID is on board. Current medications reviewed. Objective - Vital Signs Vital signs: Vital Signs Temp 97.7 F 01/12/25 14:17 Pulse 49 L 01/12/25 14:17 Resp 15 01/12/25 14:17 BP 109/56 01/12/25 14:17 Pulse Ox 100 01/12/25 14:17 FiO2 Intake & Output 01/12/25 01/12/25 01/13/25 06:59 18:59 06:59 Intake Total 118 Balance 118 Weight 53.977 kg Intake: Oral 118 Other: Voiding Method Toilet Toilet # Voids 2 1 - Exam PHYSICAL EXAMINATION: Patient is lying in the bed comfortably, no acute distress, awake alert and oriented.. HEENT: Normocephalic. Neck is supple. Pupils reactive. Nostrils clear. Oral cavity is moist. Neck reveals no JVD, carotid bruits, or thyromegaly. CHEST EXAMINATION: Trachea is central. Symmetrical expansion. Lung young clear to auscultation and percussion. CARDIAC: Normal S1, S2 with no gallops. Systolic murmur ABDOMEN: Soft. Bowel sounds normal. No organomegaly. No abdominal bruits. Extremities: Right lower extremity redness extending up to calf region., Tender to palpation.. No discharge or open wound.. No clubbing or cyanosis Neurologically awake, alert, oriented x3 with well-coordinated movements. No focal deficits noted Skin: No rash or skin lesions. Psychiatric: Coperative. Nonsuicidal Musculoskeletal: No joint swelling or deformity. Normal range of motion. - Labs CBC & Chem 7: 01/12/25 05:36 01/12/25 05:36 Labs: Abnormal Lab Results - Last 24 Hours (Table) 01/11/25 01/12/25 01/12/25 Range/Units 19:51 05:36 05:36 WBC (4.50-10.00) X 10*3/uL RBC (4.10-5.20) X 10*6/uL Hgb (12.0-15.0) g/dL Hct (37.2-46.3) % Sodium 135 L (137-145) mmol/L BUN 28 H (7-17) mg/dL Glucose 151 H (74-99) mg/dL POC Glucose (mg/dL) 188 H (70-110) mg/dL Hemoglobin A1c 7.9 H (<=6.0) % 01/12/25 01/12/25 01/12/25 Range/Units 05:36 06:18 08:15 WBC 4.14 L (4.50-10.00) X 10*3/uL RBC 3.54 L (4.10-5.20) X 10*6/uL Hgb 10.4 L (12.0-15.0) g/dL Hct 31.8 L (37.2-46.3) % Sodium (137-145) mmol/L BUN (7-17) mg/dL Glucose (74-99) mg/dL POC Glucose (mg/dL) 175 H 144 H (70-110) mg/dL Hemoglobin A1c (<=6.0) % 01/12/25 01/12/25 Range/Units 12:28 17:17 WBC (4.50-10.00) X 10*3/uL RBC (4.10-5.20) X 10*6/uL Hgb (12.0-15.0) g/dL Hct (37.2-46.3) % Sodium (137-145) mmol/L BUN (7-17) mg/dL Glucose (74-99) mg/dL POC Glucose (mg/dL) 221 H 291 H (70-110) mg/dL Hemoglobin A1c (<=6.0) % Assessment and Plan Assessment: Right lower extremity cellulitis. Failed outpatient antibiotic therapy Diabetes type 2 [id number], hyperglycemia uncontrolled. A1c 7.9 Hypertension Hyperlipidemia COPD/asthma Rheumatoid arthritis Prior history of smoking GI and DVT prophylaxis with PPI and heparin subcu Plan: Patient was given IV fluid bolus in the ER. Continue with antibiotics in the form of vancomycin and cefepime. Follow-up blood cultures. ID service is on board.. Lower extremity duplex scan is negative for DVT. Continue with pain management. Continue insulin sliding scale for better blood sugar control. A1c 7.9. Metformin and hydrochlorothiazide will be on hold. Discussed with her daughter at bedside. Follow-up closely.
[2025-01-13 06:17] LABS: Glucose,Whole Blood 183 mg/dL (70-110)
[2025-01-13 08:19] LABS: BUN/Creat Ratio 42.17 Ratio (12.00-20.00); Blood Urea Nitrogen 25.3 mg/dL (9.0-27.0); Calcium 9.5 mg/dL (8.7-10.3); Chloride 106 mmol/L (96-109); Glucose 182 mg/dL (70-110); Potassium 4.2 mmol/L (3.5-5.5); Sodium 138 mmol/L (135-145)
[2025-01-13 08:31] LABS: Basophils # (A) 0.02 X 10*3/uL (0.00-0.10); Basophils % (A) 0.4 %; Eosinophils # (A) 0.18 X 10*3/uL (0.04-0.35); Eosinophils % (A) 3.4 %; HCT 31.5 % (37.2-46.3); HGB 10.2 g/dL (12.0-15.0); Lymphocytes # (A) 1.26 X 10*3/uL (0.90-5.00); Lymphocytes % (A) 23.7 %; MCH 29.4 pg (27.0-32.0); MCHC 32.4 g/dL (32.0-37.0); MCV 90.8 FL (80.0-97.0); Monocytes # (A) 0.32 X 10*3/uL (0.20-1.00); NRBC Per 100 WBC 0 X 10*3/uL (0.00-0.01); Neutrophils # (A) 3.49 X 10*3/uL (1.80-7.70); Neutrophils % (A) 65.7 %; Platelet Count 207 X 10*3/uL (140-440); RBC 3.47 X 10*6/uL (4.10-5.20); RDW 13.2 % (11.5-14.5); WBC 5.31 X 10*3/uL (4.50-10.00)
[2025-01-13] MEDS: ERGOCALCIFEROL 1,250 MCG (50,000 IU) CAPSULE PO SCH (09:31)
[2025-01-13 12:16] LABS: Glucose,Whole Blood 200 mg/dL (70-110)
--- NOTE | 2025-01-13 13:00 | P.PN ---
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 On today's evaluation that is 01/13/2025,the patient denies any fever or any chills, patient is breathing comfortably on room air, the patient denies chest pain shortness of breath and no significant cough, patient denies abdominal pain, no nausea vomiting or diarrhea. Still complaining of pain to the right lower extremity however has decreased in intensity. Patient blood culture remains to be negative white count of 5.3 Objective - Vital Signs Vital signs: Vital Signs Temp 97.4 F L 01/13/25 07:15 Pulse 56 L 01/13/25 07:15 Resp 14 01/13/25 07:15 BP 131/63 01/13/25 07:15 Pulse Ox 99 01/13/25 07:15 FiO2 Intake & Output 01/12/25 01/13/25 01/13/25 18:59 06:59 18:59 Intake Total 118 180 Balance 118 180 Weight 53.977 kg Intake: Oral 118 180 Other: Voiding Method Toilet Toilet Toilet # Voids 1 2 - Exam GENERAL DESCRIPTION: An elderly female lying in bed in no distress RESPIRATORY SYSTEM: Unlabored breathing , decreased breath sounds at bases HEART: S1 S2 regular rate and rhythm , ABDOMEN: Soft , no tenderness EXTREMITIES: Right extremity with minimal redness and tenderness - Labs CBC & Chem 7: 01/13/25 05:37 01/13/25 05:37 Labs: Abnormal Lab Results - Last 24 Hours (Table) 01/12/25 01/12/25 01/13/25 Range/Units 12:28 17:17 05:37 RBC 3.47 L (4.10-5.20) X 10*6/uL Hgb 10.2 L (12.0-15.0) g/dL Hct 31.5 L (37.2-46.3) % BUN/Creatinine Ratio (12.00-20.00) Ratio Glucose (70-110) mg/dL POC Glucose (mg/dL) 221 H 291 H (70-110) mg/dL 01/13/25 01/13/25 Range/Units 05:37 06:15 RBC (4.10-5.20) X 10*6/uL Hgb (12.0-15.0) g/dL Hct (37.2-46.3) % BUN/Creatinine Ratio 42.17 H (12.00-20.00) Ratio Glucose 182 H (70-110) mg/dL POC Glucose (mg/dL) 183 H (70-110) mg/dL Microbiology - Last 24 Hours (Table) 01/11/25 13:19 Blood Culture - Preliminary Blood Assessment and Plan (1) Athletes foot Current Visit: Yes Status: Acute Code(s): B35.3 - TINEA PEDIS SNOMED Code(s): 7819852 (2) Cellulitis of right lower extremity Current Visit: Yes Status: Acute Code(s): L03.115 - CELLULITIS OF RIGHT LOWER LIMB SNOMED Code(s): 60850920282549043 (3) Failure of outpatient treatment Current Visit: Yes Status: Acute Code(s): Z78.9 - OTHER SPECIFIED HEALTH STATUS SNOMED Code(s): 269639050 Plan: 1patient presented to hospital increasing swelling redness of the right lower extremity and this patient has been diagnosed with cellulitis failing outpatient oral Keflex therapy patient did have evidence of athlete's foot more likely predisposing factor for the cellulitis, this has been explained to the patient as prompt treatment of athlete's foot can prevent recurrent cellulitis 2-patient currently being treated nystatin cream between the toes twice a day 3-patient is currently on vancomycin cefepime hopefully will transition to oral Zyvox on discharge no need for IV antibiotic on discharge this was discussed with the caser in Dictation was produced using spot[employer]ation software. please excuse any grammatical, word or spelling errors.
--- NOTE | 2025-01-13 13:29 | P.PN ---
Subjective Patient is seen 84-year-old female with known history of diabetes type 2 mub-jrapqsh-xintjbquo, asthma/COPD, hypertension, hyperlipidemia, rheumatoid arthritis and prior history of smoking presents here with the complaints of right leg swelling and redness. Patient has been having right leg pain and swelling worsening for the past 2 weeks. She was seen by her primary care physician and was prescribed Keflex which she took about 4 days. Patient states that her swelling is getting but still having reddened and painful. Patient states that pain even with light touch. Denies any fever or chills. No open wounds purulent discharge. No complaints of chest pain or shortness of breath. No cough is progressing. No nausea vomiting abdominal diarrhea. Patient presented to ER for further evaluation. When asked the venous duplex right lower extremity is negative for DVT. Laboratory data showed WBC 3.8 hemoglobin 11.4 and platelets 227, sodium 136 potassium 4.7 creatinine 01 bicarb 25 BUN 34 and creatinine 0.69 and blood sugar 173, lactic acid 2.2 and 2 calcium 10 Liver enzymes are not elevated. 01/12/2025 Patient is lying in the bed. Awake alert and oriented x 3. Complains of right lower extremity pain. Patient was given a dose of IV morphine. Redness is improving. Still having tenderness. Continued on vancomycin and cefepime. ID is on board. Lab data showed WBC 4.1 hemoglobin 10.4 and platelets 228 sodium 135 potassium 4.1 chloride 104 bicarb is 24 BUN 28 and creatinine 0.65 blood sugar 151 and calcium 10.0 A1c 10.0. ID is on board. 01/13 Patient still with cellulitis of the right lower extremity with some erythema a nd tenderness but no significant warmth. She denies any other new complaint. She was eager to go home today but she is agreeable to stay. She is still on IV antibiotics. She denies any other new complaints currently kept on IV vancomycin and IV cefepime WBC is normal today 5.3, hemoglobin 10.2. BMP is unremarkable. Glucose controlled hemoglobin A1c is 7.9% we will increase her metformin to 850 mg bid Objective - Vital Signs Vital signs: Vital Signs Temp 97.4 F L 01/13/25 07:15 Pulse 56 L 01/13/25 07:15 Resp 14 01/13/25 07:15 BP 131/63 01/13/25 07:15 Pulse Ox 99 01/13/25 07:15 FiO2 Intake & Output 01/12/25 01/13/25 01/13/25 18:59 06:59 18:59 Intake Total 118 180 Balance 118 180 Weight 53.977 kg Intake: Oral 118 180 Other: Voiding Method Toilet Toilet Toilet # Voids 1 2 - Exam GENERAL: The patient is alert and oriented x3, not in any acute distress. Well developed, well nourished. HEENT: Pupils are round and equally reacting to light. EOMI. No scleral icterus. No conjunctival pallor. Normocephalic, atraumatic. No pharyngeal erythema. No thyromegaly. CARDIOVASCULAR: S1 and S2 present. No murmurs, rubs, or gallops. PULMONARY: Chest is clear to auscultation, no wheezing , no crackles. ABDOMEN: Soft, nontender, nondistended, normoactive bowel sounds. No palpable organomegaly. MUSCULOSKELETAL: No joint swelling or deformity. EXTREMITIES: No cyanosis, clubbing, or pedal edema. NEUROLOGICAL: Gross neurological examination did not reveal any focal deficits. SKIN: No rashes. no petechiae. - Labs CBC & Chem 7: 01/13/25 05:37 01/13/25 05:37 Labs: Abnormal Lab Results - Last 24 Hours (Table) 01/12/25 01/13/25 01/13/25 Range/Units 17:17 05:37 05:37 RBC 3.47 L (4.10-5.20) X 10*6/uL Hgb 10.2 L (12.0-15.0) g/dL Hct 31.5 L (37.2-46.3) % BUN/Creatinine Ratio 42.17 H (12.00-20.00) Ratio Glucose 182 H (70-110) mg/dL POC Glucose (mg/dL) 291 H (70-110) mg/dL 01/13/25 01/13/25 Range/Units 06:15 12:15 RBC (4.10-5.20) X 10*6/uL Hgb (12.0-15.0) g/dL Hct (37.2-46.3) % BUN/Creatinine Ratio (12.00-20.00) Ratio Glucose (70-110) mg/dL POC Glucose (mg/dL) 183 H 200 H (70-110) mg/dL Microbiology - Last 24 Hours (Table) 01/11/25 13:19 Blood Culture - Preliminary Blood Assessment and Plan Assessment: Right lower extremity cellulitis. Failed outpatient antibiotic therapy Diabetes type 2 cpp-bqmyrod-auyytoqzt, hyperglycemia uncontrolled. A1c 7.9 Moderate calorie protein malnutrition Hypertension Hyperlipidemia COPD/asthma Rheumatoid arthritis Prior history of smoking Plan: Continue with antibiotics as per ID team Currently on IV cefepime and IV vancomycin Nutrition consult Her hemoglobin A1c is 7.9% will increase her metformin 500 mg twice daily to 850 mg twice daily Labs and medication were reviewed.. Continue same treatment. Continue with symptomatic treatment. Resume home medication. Monitor labs and vitals. DVT and GI prophylaxis. Further recommendations as per clinical course of the patient DVT prophylaxis: Subcutaneous heparin GI Prophylaxis: Ppi PT/OT: Pending Prognosis is guarded
[2025-01-13] MEDS: VANCOMYCIN TROUGH DUE 1 EACH MISC MISCELLANE ONE (14:17)
[2025-01-13 17:02] LABS: Glucose,Whole Blood 127 mg/dL (70-110)
[2025-01-13] MEDS: metFORMIN 850 MG TAB PO SCH (17:16)
[2025-01-13 19:40] LABS: Glucose,Whole Blood 182 mg/dL (70-110)
[2025-01-14 05:32] LABS: African American GFR (CKD) 67 (>60 ml/min/1.73 sqM); Non-African American GFR(CKD) 58 (>60 ml/min/1.73 sqM)
[2025-01-14 05:46] LABS: Glucose,Whole Blood 145 mg/dL (70-110)
--- NOTE | 2025-01-14 11:31 | CDI ---
Documentation Clarification Form Date: 01/14/2025 11:18:14 AM From: Zoë Goodwin RN CCDS Phone: [phone] Admit Date: 01/12/2025 02:29:00 PM Patient Name: Cookie Boss Visit Number: [id number] Discharge Date: ATTENTION: The Clinical Documentation Specialists (CDI) and [facility] Coding Staff appreciate your assistance in clarifying documentation. Please respond to the clarification below the line at the bottom and electronically sign. The CDI & [facility] Coding staff will review the response and follow-up if needed. Please note: Queries are made part of the Legal Health Record. If you have any questions, please contact the author of this message via ITS. Doctor: Jose E Sheet Right lower extremity cellulitis is documented, 01/11 HP and 01/12 01/13 Medicine notes Additional clarification regarding the type of cellulitis is requested. History/risk factors: 84 year old female presents to the ED with right leg pain and swelling that has been worsening for the past two weeks. Was treated by primary care DR with Keflex which she took for four days. Medical history of type2 DM non-insulin dependent, COPD, HTN, RA and Asthma. 01/11 HP Clinical Indicators: 01/11, HP: Right lower extremity redness extending up to the knee, swelling and tender to palpation. 01/12 Hemoglobin A1c 7.9 Treatment: 01/11 Cefepime IVPB x 1; 01/11 Vancomycin IVPB x 1; 01/11 Cefepime IVPB Q8H, Humalog sliding sale SQ ACHS MIGUELINA, 01/13 Glucophage BID with meals, 01/12 Vancomycin IVPB Q16H Please clarify the etiology of the cellulitis, if known: [ x ] Cellulitis is a diabetic skin complication, possible [ ] Cellulitis is not a diabetic skin complication [ ] Other, please specify: [ ] Unable to determine (Template Last Revised: September 2022) MTDD
[2025-01-14 11:54] LABS: Glucose,Whole Blood 145 mg/dL (70-110)
[2025-01-14] MEDS: LACTULOSE 20 GM/30 ML CUP PO ONE (12:07)
--- NOTE | 2025-01-14 14:27 | P.PN ---
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 On today's evaluation that is 01/14/2025,the patient remains to be afebrile, patient is on room air not requiring supplemental oxygen and denies any shortness of breath no chest pain or cough.Patient denies having any nausea or vomiting, no abdominal pain and no diarrhea, circumventing of pain to the right lower extremity however decrease in intensity and redness has resolved. Patient did have a creatinine of 0.90 Objective - Vital Signs Vital signs: Vital Signs Temp 97.9 F 01/14/25 07:00 Pulse 61 01/14/25 07:00 Resp 18 01/14/25 07:00 BP 117/63 01/14/25 07:00 Pulse Ox 99 01/14/25 07:00 FiO2 Intake & Output 01/13/25 01/14/25 01/14/25 18:59 06:59 18:59 Intake Total 410 474 Balance 410 474 Intake: Oral 410 474 Other: Voiding Method Toilet Toilet Toilet # Voids 4 2 # Bowel Movements 0 - Exam GENERAL DESCRIPTION: An elderly female lying in bed in no distress RESPIRATORY SYSTEM: Unlabored breathing , decreased breath sounds at bases HEART: S1 S2 regular rate and rhythm , ABDOMEN: Soft , no tenderness EXTREMITIES: Right extremity no redness screw machine tender to touch - Labs CBC & Chem 7: 01/13/25 05:37 01/14/25 04:18 Labs: Abnormal Lab Results - Last 24 Hours (Table) 01/13/25 01/13/25 01/13/25 Range/Units 12:15 17:00 19:39 POC Glucose (mg/dL) 200 H 127 H 182 H (70-110) mg/dL 01/14/25 Range/Units 05:45 POC Glucose (mg/dL) 145 H (70-110) mg/dL Microbiology - Last 24 Hours (Table) 01/11/25 13:19 Blood Culture - Preliminary Blood Assessment and Plan (1) Athletes foot Current Visit: Yes Status: Acute Code(s): B35.3 - TINEA PEDIS SNOMED Code(s): 8112177 (2) Cellulitis of right lower extremity Current Visit: Yes Status: Acute Code(s): L03.115 - CELLULITIS OF RIGHT LOWER LIMB SNOMED Code(s): 44754590230009320 (3) Failure of outpatient treatment Current Visit: Yes Status: Acute Code(s): Z78.9 - OTHER SPECIFIED HEALTH STATUS SNOMED Code(s): 759690747 Plan: 1patient presented to hospital increasing swelling redness of the right lower extremity and this patient has been diagnosed with cellulitis failing outpatient oral Keflex therapy patient did have evidence of athlete's foot more likely predisposing factor for the cellulitis, this has been explained to the patient as prompt treatment of athlete's foot can prevent recurrent cellulitis 2-patient currently being treated nystatin cream between the toes twice a day which she will continue for about a week or discharge 3-patient antibiotic switched over to oral Zyvox prescription sent to the pharmacy care discussed with admitting physician Dictation was produced using [employer] dictation software. please excuse any grammatical, word or spelling errors. Time with Patient: Less than 30
[2025-01-14 15:23] VITALS: BP 130/72; PULSE 58; RESP 16; TEMP 97.6
--- NOTE | 2025-01-14 22:24 | P.DS ---
Providers Date of admission: 01/12/25 14:29 Attending physician: Verenice Hampton Consults: 01/11/25 12:57 Consult Physician Urgent Consulting Provider: Adalberto Vernon Consult Reason/Comments: Cellulitis of right lower extremity, failure of outpatient treatment Do you want consulting provider notified?: Yes Primary care physician: Carmela Daley Hospital Course: Diagnosis: Right lower extremity cellulitis. Failed outpatient antibiotic therapy Diabetes type 2 eci-rnfytku-prpyjyino, hyperglycemia uncontrolled. A1c 7.9 Moderate calorie protein malnutrition Hypertension Hyperlipidemia COPD/asthma Rheumatoid arthritis Prior history of smoking Hospital course: Patient is seen 84-year-old female with known history of diabetes type 2 hgi-ghdozrn-zflepjfwp, asthma/COPD, hypertension, hyperlipidemia, rheumatoid arthritis and prior history of smoking presents here with the complaints of right leg swelling and redness. Patient was found to have cellulitis of the right lower extremity. Patient was treated with IV antibiotic IV cefepime and IV Vanco. Pain tenderness and redness and swelling significantly improved in her groin leg. Ultrasound was negative for DVT. Patient denies fall or trauma. No other new complaints Patient was cleared for discharge by ID team. Patient will be discharged on short course of oral Zyvox Metformin was increased from 500 up to 850 twice daily for hemoglobin A1c was 7.9% Discharge instruction provided for patient and son at bedside in details and all questions were answered to their satisfaction Problems and management plan were discussed with the patient and he verbalized understanding and acceptance Patient was found stable and can be discharged home in guarded prognosis however he needs follow-up as an outpatient. Patient was instructed to follow up with PCP Dr. Daley within one week and patient agrees Patient was instructed to follow-up with vascular surgery Dr. Silverio/Dr. Morse in 1 to 2 weeks Physical exam Gen: patient is a AAOx3, no distress CVS: S1-S2, RRR, no murmur Lungs: B/L CTA, no wheezing Abdomen: soft, no distention, no tenderness, positive bowel sounds -Extremity: no leg edema or induration. Left leg the leg is close to the ankle is improving significantly with minimal redness and swelling of Time spent more than 35 minutes Plan - Discharge Summary Discharge Rx Participant: No New Discharge Prescriptions: New Linezolid [Zyvox] 600 mg PO Q12H #14 tab metFORMIN HCL [Glucophage] 850 mg PO BID-W/MEALS #60 tab Continue Pravastatin Sodium [Pravachol] 40 mg PO DAILY Ramipril 10 mg PO DAILY hydroCHLOROthiazide [Hydrodiuril] 25 mg PO DAILY Mometasone/Formoterol [Dulera 100 Mcg-5 Mcg Inhaler] 2 puff INHALATION RT-BID Ubidecarenone [Co Q-10] 200 mg PO DAILY Aspirin EC [Ecotrin Low Dose] 81 mg PO DAILY amLODIPine [Norvasc] 10 mg PO DAILY #20 tablet lamoTRIgine [LaMICtal Xr] 50 mg PO BID Albuterol Nebulized [Ventolin Nebulized] 2.5 mg INHALATION RT-QID PRN PRN Reason: Shortness Of Breath Ergocalciferol (Vitamin D2) [Drisdol (50,000 Iu)] 1,250 mcg PO WE Potassium Chloride ER [K-Dur 10] 10 meq PO DAILY Albuterol Inhaler [Ventolin Hfa Inhaler] 2 puff INHALATION RT-QID PRN PRN Reason: Shortness Of Breath Azelastine HCl [Astelin Nasal Buckhorn] 1 spray EA NOSTRIL DAILY Lubiprostone [Amitiza] 24 mcg PO BID Furosemide [Lasix] 20 mg PO DAILY Discontinued metFORMIN HCL [Glucophage] 500 mg PO BID-W/MEALS Cephalexin [Keflex] 500 mg PO Q6HR Discharge Medication List Mometasone/Formoterol [Dulera 100 Mcg-5 Mcg Inhaler] 2 puff INHALATION RT-BID 06/11/14 [History] Pravastatin Sodium [Pravachol] 40 mg PO DAILY 06/11/14 [History] Ramipril 10 mg PO DAILY 06/11/14 [History] hydroCHLOROthiazide [Hydrodiuril] 25 mg PO DAILY 06/11/14 [History] Aspirin EC [Ecotrin Low Dose] 81 mg PO DAILY 04/12/16 [History] Ubidecarenone [Co Q-10] 200 mg PO DAILY 04/12/16 [History] amLODIPine [Norvasc] 10 mg PO DAILY #20 tablet 09/23/19 [Rx] lamoTRIgine [LaMICtal Xr] 50 mg PO BID 06/22/20 [History] Albuterol Inhaler [Ventolin Hfa Inhaler] 2 puff INHALATION RT-QID PRN 01/11/25 [History] Albuterol Nebulized [Ventolin Nebulized] 2.5 mg INHALATION RT-QID PRN 01/11/25 [History] Azelastine HCl [Astelin Nasal Buckhorn] 1 spray EA NOSTRIL DAILY 01/11/25 [History] Ergocalciferol (Vitamin D2) [Drisdol (50,000 Iu)] 1,250 mcg PO WE 01/11/25 [History] Furosemide [Lasix] 20 mg PO DAILY 01/11/25 [History] Lubiprostone [Amitiza] 24 mcg PO BID 01/11/25 [History] Potassium Chloride ER [K-Dur 10] 10 meq PO DAILY 01/11/25 [History] Linezolid [Zyvox] 600 mg PO Q12H #14 tab 01/14/25 [Rx] metFORMIN HCL [Glucophage] 850 mg PO BID-W/MEALS #60 tab 01/14/25 [Rx] Follow up Appointment(s)/Referral(s): [facility], [NON-STAFF] - As Needed Zak Gao DO [Doctor of Osteopathic Medicine] - 1 Week (vascular surgeon) Carmela Daley DO [Primary Care Provider] - 1-2 days Activity/Diet/Wound Care/Special Instructions: resume previous diet or heart healthy diet activity is restricted till you see your doctor Discharge Disposition: HOME WITH HOME HEALTH SERVICES
== END 2025-01-14 15:30 | disposition home health service (06) | DRG 638 ==
LOC: EC 10:35 → 6NMEDSUR 12:35 → OBSVTOIN 01-12 14:29
PROVIDERS: ADMIT Internal Medicine; ATTEND Internal Medicine
DX: E11.628 Type 2 diabetes mellitus with other skin complications (principal); E44.0 Moderate protein-calorie malnutrition; L03.115 Cellulitis of right lower limb; E11.65 Type 2 diabetes mellitus with hyperglycemia; B35.3 Tinea pedis; E78.5 Hyperlipidemia, unspecified; J44.89 Other specified chronic obstructive pulmonary disease; M06.9 Rheumatoid arthritis, unspecified; I10 Essential (primary) hypertension; Z68.1 Body mass index [BMI] 19.9 or less, adult; Z79.4 Long term (current) use of insulin; Z87.891 Personal history of nicotine dependence; Z79.51 Long term (current) use of inhaled steroids; Z79.82 Long term (current) use of aspirin; Z79.84 Long term (current) use of oral hypoglycemic drugs; Z79.899 Other long term (current) drug therapy; Z90.12 Acquired absence of left breast and nipple; Z90.710 Acquired absence of both cervix and uterus; Z89.422 Acquired absence of other left toe(s); Z89.421 Acquired absence of other right toe(s)
CPT/HCPCS: 36415; 80048; 80053; 80202; 82565; 83036; 83605; 85025; 86140; 87040; 94640; 96361; 96365; 96366; 96367; 96375; 99285